=== PATIENT | female | born 1965 | race Caucasian/White ===

== ENCOUNTER → 2016-11-16 | Outpatient (CLI) | payer MEDICARE, OTHER ==
[~2016-11-16] MED LIST: /AMIT25TA PO; /OXYB10XLT PO; ADV250INH INH; ADVA250A INH; ALBU0.5N INH; AMPY10TA PO; BACL-67 PO; BACL10TA2 PO; BETA0.3I SC; EMLA2.5C EX; FIRS1SOL3 PO; FLOR250C PO; GABA800T PO; LIDO1DIS2 TD; NEUR300C PO; PERC7.5T12 PO; PRENTAB66 PO; ROPI0.25 PO; SING10TA32 PO; SING5CHW PO; TYSA1INJ IV; VITA30004 PO; VITAPRTA PO; ZANTTAB PO; ZYRT10CA PO; ZYRT10TA2 PO; [UNRECOGNIZED DRUG - OTHER] PO
--- NOTE | 2016-11-16 15:17 | REP ---
REASON FOR EXAM: Multiple sclerosis. COMPARISON EXAM: 03/29/2016 GADOLINIUM UTILIZED: 18 mL of ProHance. The craniovertebral junction is unchanged. No abnormal signal enhancement has developed in the imaged portion of the spinal cord. Vertebral body height and alignment is unchanged remaining within normal limits. There is disc space hydrational signal loss and mild disc space height loss at multiple levels, status quo. At the C2-3 level, there is no significant change. There is effacement of the thecal sac due to a small central disc protrusion without significant cord compression. At the C3-4 level, there is a broad-based annular bulge and a central disc protrusion minimally effacing the thecal sac and without spinal cord compression, status quo. There is no acute disc extrusion or foraminal narrowing. At the C4-5 level, note is again made of a broad-based annular bulge with a central disc protrusion, status quo. The discogenic change is again seen to efface the thecal sac, status quo. There is no jesse cord compression or significant change from the prior exam. The neural foramina are not stenotic. At the C5-6 level, there is a broad-based annular bulge which nearly obliterates the ventral subarachnoid space, status quo. The spinal cord is unchanged in appearance showing no jesse compression, however, there is unchanged central canal stenosis. Bilateral degenerative hypertrophic facet and uncovertebral joint changes are again noted causing essentially unchanged mild bilateral foraminal narrowing. At the C6-7 level, there is a broad-based annular bulge again seen with a posterior spondylotic bar. These factors are again seen to obliterate the ventral subarachnoid space, and there is now evidence of mild flattening and straightening of the spinal cord with mild central canal stenosis. Once again, there is bilateral foraminal narrowing at this level, status quo. There is no acute disc extrusion. At the C7-T1 level, there is no change. There is no disc herniation, foraminal narrowing, or central canal stenosis. IMPRESSION: Multilevel discogenic changes, essentially stable from the prior exam. There is no abnormal cord signal. Signed by Mirza Forbes DO 11/16/2016 03:39 P
--- NOTE | 2016-11-16 15:51 | REP ---
REASON FOR EXAM: History of multiple sclerosis followup exam. COMPARISON: 03/29/2016. Gadolinium 18 mL of ProHance. The craniovertebral junction is unchanged. There is no cerebellar tonsillar ectopia. The ventricles and sulci are unchanged. There are no extra-axial fluid collections. There is no shift of the midline structures. Once again, note is made of T2 and particularly FLAIR deep white matter signal hyperintensities with predominant pericallosal hyperintensities consistent with Vega's fingers status quo. There is no evidence of abnormal lesional enhancement. The orbital and petrous structures, cerebellopontine angles, posterior fossa are unchanged remaining within normal limits. The sella turcica, cavernous, and paracavernous structures are unchanged remaining within normal limits. The visualized portions of the paranasal sinuses and mastoid air cells are also unchanged. IMPRESSION: Findings, as described above, consistent with multiple sclerosis stable from the prior exam. Signed by Mirza Forbes DO 11/16/2016 04:27 P
== END ==
LOC: M RAD 12:48
PROVIDERS: ATTEND Psychiatry & Neurology Neurology
DX: G35 Multiple sclerosis (principal)
CPT/HCPCS: 70553; 72156; A9576

== ENCOUNTER → 2017-01-23 | Outpatient (CLI) | payer MEDICARE, OTHER ==
[~2017-01-23] MED LIST changes: -BACL-67 PO; +BACL1TAB9 PO
== END ==
LOC: M LRY 15:42
PROVIDERS: ATTEND Nurse Practitioner Family
DX: R05 Cough (principal); Z53.8 Procedure and treatment not carried out for other reasons

== ENCOUNTER → 2017-01-27 | Outpatient (CLI) | payer MEDICARE, OTHER ==
--- NOTE | 2017-01-27 11:49 | REP ---
Clinical: cough and shortness of breath. Comparison: none. Technique: PA and lateral. Findings: The mediastinum and cardiac silhouette are normal. The lung anderson are clear and without acute consolidation, effusion, or pneumothorax. The skeletal structures are intact and normal. Impression: 1. No acute cardiopulmonary process. Signed by Tunde Gracia MD 01/27/2017 11:40 A
== END ==
LOC: M LRY 11:27
PROVIDERS: ATTEND Nurse Practitioner Family
DX: R05 Cough (principal); R06.02 Shortness of breath
CPT/HCPCS: 71020; G0463

== ENCOUNTER → 2017-07-03 | Outpatient (CLI) | payer MEDICARE, OTHER | LOC: M LRY 16:57 | DX: R05 Cough (principal) | CPT/HCPCS: 71046; 94640 ==

== ENCOUNTER 2017-11-07 10:56 | Emergency (ER) | payer MEDICARE, OTHER ==
[2017-11-07] MEDS: TETRACAINE 0.5% OPHTH SOLN 4ML OD (12:00)
[2017-11-07] MEDS: LISSAMINE GREEN OPHTH 1.5 MG STRIP OD (12:00)
[2017-11-07] MEDS ORDERED: ERYTHROMYCIN OPHTH OINT OD (12:15)
== END 2017-11-07 12:30 | disposition home or self-care (01) ==
LOC: M ED 10:56
DX: S05.01XA Injury of conjunctiva and corneal abrasion without foreign body, right eye, initial encounter (principal); W22.8XXA Striking against or struck by other objects, initial encounter; Y92.099 Unspecified place in other non-institutional residence as the place of occurrence of the external cause; Y93.9 Activity, unspecified; Y99.9 Unspecified external cause status; J45.909 Unspecified asthma, uncomplicated; K21.9 Gastro-esophageal reflux disease without esophagitis; G35 Multiple sclerosis; H53.8 Other visual disturbances; F32.9 Major depressive disorder, single episode, unspecified; Z79.899 Other long term (current) drug therapy; Z88.6 Allergy status to analgesic agent; Z88.0 Allergy status to penicillin
CPT/HCPCS: 99283

== ENCOUNTER → 2017-12-12 | Outpatient (CLI) | payer MEDICARE, OTHER | LOC: M RAD 16:16 | DX: G35 Multiple sclerosis (principal) ==

== ENCOUNTER → 2017-12-31 | Outpatient (CLI) | payer MEDICARE, OTHER ==
[~2017-12-31] MED LIST changes: -/AMIT25TA PO; -/OXYB10XLT PO; -ADV250INH INH; -ADVA250A INH; -ALBU0.5N INH; -AMPY10TA PO; -BACL10TA2 PO; -BACL1TAB9 PO; -BETA0.3I SC; -EMLA2.5C EX; -FIRS1SOL3 PO; -FLOR250C PO; -GABA800T PO; -LIDO1DIS2 TD; -NEUR300C PO; -PERC7.5T12 PO; -PRENTAB66 PO; +PROHANCE 279.3MG/ML 15ML VIAL (A9576) As Ordered; +PROHANCE 279.3MG/ML 5ML VIAL (A9576) As Ordered; -ROPI0.25 PO; -SING10TA32 PO; -SING5CHW PO; -TYSA1INJ IV; -VITA30004 PO; -VITAPRTA PO; -ZANTTAB PO; -ZYRT10CA PO; -ZYRT10TA2 PO; -[UNRECOGNIZED DRUG - OTHER] PO
== END ==
LOC: M RAD 14:52
DX: G35 Multiple sclerosis (principal); M51.24 Other intervertebral disc displacement, thoracic region; M51.34 Other intervertebral disc degeneration, thoracic region; M47.892 Other spondylosis, cervical region; M50.21 Other cervical disc displacement, high cervical region; M50.221 Other cervical disc displacement at C4-C5 level; M50.222 Other cervical disc displacement at C5-C6 level; M50.223 Other cervical disc displacement at C6-C7 level
CPT/HCPCS: A9576

== ENCOUNTER 2019-02-06 16:21 | Emergency (ER) | payer MEDICARE, OTHER ==
[~2019-02-06] VITALS: Ht 170.2 cm; Wt 94.5 kg
[~2019-02-06 16:21] MED LIST changes: +ACIP1TAB PO; +ADV250INH INH; +ADVA250A INH; +ALBU0.5N INH; +AMIT1TAB11 PO; +AMPY10TA PO; +BACL10TA2 PO; +BACL1TAB9 PO; +BETA0.3I SC; +DITR1TAB PO; +EMLA2.5C EX; +ERYTOIN8 OD; +FIRS50SO PO; +FLOR250C PO; +GABA800T4 PO; +LIDO1DIS2 TD; +NEUR300C PO; +PERC7.5T12 PO; +PRENTAB66 PO; -PROHANCE 279.3MG/ML 15ML VIAL (A9576) As Ordered; -PROHANCE 279.3MG/ML 5ML VIAL (A9576) As Ordered; +PROZ20CA11 PO; +ROPI0.25 PO; +SING10TA32 PO; +SING5CHW PO; +TYSA1INJ IV; +VITA30004 PO; +VITAPRTA PO; +ZANT150T40 PO; +ZANTTAB PO; +ZYRT10CA PO; +ZYRT10CA5 PO; +[UNRECOGNIZED DRUG - OTHER] PO
[2019-02-06] MEDS ORDERED: ONDANSETRON 4MG/2ML VIAL (J2405) IV ONE (18:45)
[2019-02-06] MEDS ORDERED: NS 1,000 ML IV ONE (18:45)
[2019-02-06] MEDS ORDERED: ACETAMINOPHEN 325 MG TAB PO ONE (18:45)
--- NOTE | 2019-02-06 19:07 | REP ---
Chest x-ray: Two views. History: Fever and cough. Comparison chest x-ray: July 03, 2017. Findings: There is increased density in the right lower lobe overlying the spine on the lateral radiograph. This is seen overlying the right heart on the frontal view and is felt to be consistent with right lower lobe pneumonia. Remaining lung anderson are clear. Pleural angles are sharp. Heart is not enlarged. Pulmonary vasculature is not increased. Impression: Area of increased density in the right lower lobe posteriorly consistent with pneumonia. Otherwise no acute disease. Electronically Signed by Deacon Elliott MD 02/06/2019 06:59 P
[2019-02-06 19:30] LABS: BASO % 0.2 % (0.0-1.0); EOS # 0.1 10^3/uL (0.0-0.5); HEMATOCRIT 36.3 % (36.0-47.0); HEMOGLOBIN 12.4 g/dl (12.0-15.5); LYMPH # 0.5 10^3/uL (1.5-5.0); LYMPH % 5.4 % (24.0-44.0); MEAN CORPUSCULAR HEMOGLOBIN 29.9 pg (27.0-33.0); MEAN CORPUSCULAR HGB CONC 34.2 g/dl (32.0-36.5); MEAN CORPUSCULAR VOLUME 87.5 fl (80.0-96.0); MONO # 0.8 10^3/uL (0.0-0.8); MONO % 8.4 % (0.0-5.0); NEUTROPHILS # 7.9 10^3/uL (1.5-8.5); NEUTROPHILS % 84.5 % (36.0-66.0); PLATELET COUNT, AUTOMATED 199 10^3/uL (150-450); RED BLOOD COUNT 4.15 10^6/uL (4.00-5.40); WHITE BLOOD COUNT 9.3 10^3/uL (4.0-10.0)
[2019-02-06] MEDS ORDERED: AZITHROMYCIN INJ 500 MG, VIAL MATE ADAPTER 1 EACH in D5W 250 ML IV ONE (19:45)
[2019-02-06 19:51] LABS: ALBUMIN 3.1 GM/DL (3.2-5.2); ALT/SGPT 26 U/L (12-78); BILIRUBIN,DIRECT 0.4 MG/DL (0.0-0.2); BLOOD UREA NITROGEN 8 MG/DL (7-18); CALCIUM LEVEL 8.3 MG/DL (8.5-10.1); CARBON DIOXIDE LEVEL 29 MEQ/L (21-32); CHLORIDE LEVEL 99 MEQ/L (98-107); CREATININE FOR GFR 0.66 MG/DL (0.55-1.30); GLOMERULAR FILTRATION RATE > 60.0 (>51); GLUCOSE, FASTING 107 MG/DL (70-100); POTASSIUM SERUM 3.1 MEQ/L (3.5-5.1); SODIUM LEVEL 137 MEQ/L (136-145); TOTAL PROTEIN 6.7 GM/DL (6.4-8.2)
[2019-02-06 20:01] LABS: INFLUENZA A AMPLIFICATION NEGATIVE (NEGATIVE); INFLUENZA B AMPLIFICATION NEGATIVE (NEGATIVE)
[2019-02-06 21:34] LABS: APPEARANCE, URINE HAZY (CLEAR); BACTERIA, URINE AUTO 1+ (NEGATIVE); BILIRUBIN, URINE AUTO NEGATIVE (NEGATIVE); BLOOD, URINE BLOOD NEGATIVE (NEGATIVE); COLOR, URINE AMBER (YELLOW); GLUCOSE, URINE (UA) AUTO NEGATIVE (NEGATIVE); KETONE, URINE AUTO 1+ mg/dL (NEGATIVE); LEUKOCYTE ESTERASE, URINE AUTO TRACE (NEGATIVE); MUCUS, URINE MODERATE (NEGATIVE); NITRITE, URINE AUTO NEGATIVE (NEGATIVE); PROTEIN, URINE AUTO 2+ mg/dL (NEGATIVE); RBC, URINE AUTO 4 /HPF (0-3); SPECIFIC GRAVITY URINE AUTO 1.032 (1.002-1.035); SQUAMOUS EPITHELIAL CELL UR AU 2 /HPF (0-6); WBC, URINE AUTO 10 /HPF (0-3)
[2019-02-06] MEDS ORDERED: cefTRIAXone SOD 1 GM in D5W MINI-BAG PLUS 50 ML IV ONE (21:45)
[2019-02-06] MEDS ORDERED: IBUP-1022 PO (21:53)
[2019-02-06] MEDS ORDERED: CEFU50TA PO (21:53)
[2019-02-06 22:07] VITALS: BP 118/56
== END 2019-02-06 22:16 | disposition home or self-care (01) ==
LOC: M ED 16:21
DX: J84.9 Interstitial pulmonary disease, unspecified (principal); R91.8 Other nonspecific abnormal finding of lung field; J45.909 Unspecified asthma, uncomplicated; G35 Multiple sclerosis; Z88.0 Allergy status to penicillin; Z88.8 Allergy status to other drugs, medicaments and biological substances; Z79.899 Other long term (current) drug therapy
CPT/HCPCS: 71046; 80048; 80076; 81001; 83605; 85025; 87040; 87086; 87502; 96365; 96366; 96368; 96375; 99284; G0463; J0456; J0696; J2405

== ENCOUNTER → 2019-02-14 | Outpatient (CLI) | payer MEDICARE, OTHER ==
[~2019-02-14] MED LIST changes: +CEFU50TA PO; +IBUP-1022 PO
--- NOTE | 2019-02-14 19:27 | REP ---
CHEST, TWO VIEWS: Two views of the chest were performed and compared to prior study of 02/06/2019. There is improvement of the posterior inferior right lower lobe infiltrate. Mild residual is noted. Other lung anderson remain clear. Heart is normal in size. Mediastinal silhouette is unremarkable and unchanged. IMPRESSION: Right lower lobe infiltrate with mild residual. Recommend followup until resolution. Electronically Signed by Shiv Childers MD 02/14/2019 09:29 P
== END ==
LOC: M LRY 16:54
PROVIDERS: ATTEND Nurse Practitioner Family
DX: R91.8 Other nonspecific abnormal finding of lung field (principal); R09.89 Other specified symptoms and signs involving the circulatory and respiratory systems
CPT/HCPCS: 71046; 87804; 87880; G0463

== ENCOUNTER → 2019-02-14 | Outpatient (REF) | payer MEDICARE, OTHER | LOC: M SFHCLERA 16:34 | PROVIDERS: ATTEND Nurse Practitioner Family | DX: R50.9 Fever, unspecified (principal) ==

== ENCOUNTER → 2019-06-03 | Outpatient (REF) | payer MEDICARE, OTHER | LOC: M SFHCLERA 16:31 | PROVIDERS: ATTEND Family Medicine | DX: R30.0 Dysuria (principal) | CPT/HCPCS: 81002; 87086; G0463 ==

== ENCOUNTER 2020-03-11 14:01 | Inpatient (IN) | payer MEDICARE, OTHER ==
[~2020-03-11] VITALS: Ht 170.2 cm; Wt 85.0 kg
[2020-03-11] MEDS ORDERED: PROAAER10 INH (15:09)
[2020-03-11] MEDS ORDERED: RABE1TAB PO (15:09)
[2020-03-11] MEDS ORDERED: COMBIVENT RESPIMAT 100-20MCG INHALER 4GM INH ONE (15:15)
[2020-03-11] MEDS ORDERED: ONDANSETRON 4MG/2ML VIAL IV ONE (15:15)
[2020-03-11] MEDS ORDERED: MORPHINE 4 MG/ML 1ML VIAL/SYRINGE (J2270) IV ONE (15:15)
[2020-03-11 15:22] LABS: BASO % 0.1 % (0.0-1.0); HEMATOCRIT 38.4 % (36.0-47.0); HEMOGLOBIN 12.6 g/dl (12.0-15.5); LYMPH # 0.5 10^3/uL (1.5-5.0); LYMPH % 3.7 % (24.0-44.0); MEAN CORPUSCULAR HEMOGLOBIN 28.5 pg (27.0-33.0); MEAN CORPUSCULAR HGB CONC 32.8 g/dl (32.0-36.5); MEAN CORPUSCULAR VOLUME 86.9 fl (80.0-96.0); MONO % 7.3 % (0.0-5.0); NEUTROPHILS # 12.4 10^3/uL (1.5-8.5); NEUTROPHILS % 87.8 % (36.0-66.0); PLATELET COUNT, AUTOMATED 233 10^3/uL (150-450); RED BLOOD COUNT 4.42 10^6/uL (4.00-5.40); WHITE BLOOD COUNT 14.1 10^3/uL (4.0-10.0)
[2020-03-11 15:48] LABS: ALBUMIN 2.7 GM/DL (3.2-5.2); ALT/SGPT 33 U/L (12-78); BILIRUBIN,DIRECT 0.5 MG/DL (0.0-0.2); BILIRUBIN,TOTAL 1.1 MG/DL (0.2-1.0); BLOOD UREA NITROGEN 7 MG/DL (7-18); CALCIUM LEVEL 8.3 MG/DL (8.5-10.1); CARBON DIOXIDE LEVEL 27 MEQ/L (21-32); CHLORIDE LEVEL 101 MEQ/L (98-107); CK-MB VALUE MASS 1.5 NG/ML (<3.6); CPK CREATINE PHOSPHOKINASE 116 U/L (26-192); CREATININE FOR GFR 0.51 MG/DL (0.55-1.30); GLOMERULAR FILTRATION RATE > 60.0 (>51); GLUCOSE, FASTING 94 MG/DL (70-100); LIPASE 86 U/L (73-393); MB/CK RELATIVE INDEX 1.29 (< OR =4); POTASSIUM SERUM 3.1 MEQ/L (3.5-5.1); SODIUM LEVEL 138 MEQ/L (136-145); TOTAL PROTEIN 6.2 GM/DL (6.4-8.2); TROPONIN I < 0.02 NG/ML (< 0.10)
[2020-03-11] MEDS ORDERED: POTASSIUM CHLORIDE 10 MEQ SR TABLET PO ONE (16:00)
[2020-03-11] MEDS ORDERED: ISOVUE-370 76% 100ML VIAL As Ordered ONE (16:41)
--- NOTE | 2020-03-11 17:11 | REPVR ---
PROCEDURE INFORMATION: Exam: XR Chest, 2 Views Exam date and time: 03/11/2020 3:05 PM Age: 55 years old Clinical indication: Shortness of breath; Additional info: SOB cough TECHNIQUE: Imaging protocol: XR of the chest Views: 2 views. COMPARISON: CR CHEST 2 VIEW 12/18/2019 FINDINGS: Lungs: Dense ill-defined airspace consolidation in the medial aspect of the right lower lobe is consistent with pneumonia. It is approximately 7 x 10 cm on PA view. The left lung is clear. Pleural space: No significant pleural effusion. No pneumothorax. Heart/Mediastinum: The cardiac silhouette is normal in size. The mediastinal contour is normal. Bones/joints: No acute osseous abnormalities are identified. Soft tissues: Unremarkable. IMPRESSION: 1. Dense ill-defined airspace consolidation in the medial aspect of the right lower lobe is consistent with pneumonia. It is new since the last chest x-ray 3 months ago. Imaging follow-up to resolution is recommended. 2. The left lung is clear. Electronically signed by: Jagdish Starks On 03/11/2020 17:11:04 PM
--- NOTE | 2020-03-11 17:28 | REPVR ---
PROCEDURE INFORMATION: Exam: CT Abdomen And Pelvis With Contrast Exam date and time: 03/11/2020 4:55 PM Age: 55 years old Clinical indication: Abdominal pain; Localized; Right upper quadrant (ruq); Additional info: Ruq pain, vomiting, diarrhea TECHNIQUE: Imaging protocol: Computed tomography of the abdomen and pelvis with intravenous contrast. Radiation optimization: All CT scans at this facility use at least one of these dose optimization techniques: automated exposure control; mA and/or kV adjustment per patient size (includes targeted exams where dose is matched to clinical indication); or iterative reconstruction. Contrast material: ISOVUE 370; Contrast volume: 100 ml; Contrast route: INTRAVENOUS (IV); COMPARISON: No relevant prior studies available. FINDINGS: Lungs: Dense consolidation with air bronchograms in the medial basal and posterior basal segments of the right lower lobe is consistent with pneumonia. Pleural space: No pleural effusion. The left lung base is clear. Heart: Heart size is normal. Liver: Normal. No mass. Gallbladder and bile ducts: Cholecystectomy. Mild dilatation of the common bile duct, 9 mm, is probably physiologic following cholecystectomy (reservoir effect). Pancreas: Normal. No ductal dilation. Spleen: Normal. No splenomegaly. Adrenals: Normal. No mass. Kidneys and ureters: At the lateral right mid kidney, a mass is 1.9 x 1.1 x 1.5 cm. It is hyperattenuating and homogeneous. Its density is 44 HU, which is not compatible with a simple cyst. It may be a complicated cystic lesion or solid mass. The kidneys and ureters are otherwise unremarkable. Stomach and bowel: The stomach and duodenum are unremarkable. The small bowel is normal in caliber without wall thickening. The colon is unremarkable. There is no acute colonic distention, diverticulosis or inflammation. Appendix: The appendix is normal in caliber without surrounding inflammation. Intraperitoneal space: Unremarkable. No free air. No significant fluid collection. Vasculature: Unremarkable. No abdominal aortic aneurysm. Lymph nodes: Unremarkable. No enlarged lymph nodes. Urinary bladder: Urinary bladder is normal without wall thickening, mass or stone. Reproductive: Bilateral tubal ligation clips are noted. Postmenopausal uterine and ovarian atrophy is appropriate for 55 years of age. Bones/joints: Lumbar hyperlordosis. Soft tissues: See "Kidneys and ureters" finding. IMPRESSION: 1. Dense consolidation with air bronchograms in the medial basal and posterior basal segments of the right lower lobe is consistent with pneumonia. 2. At the lateral right mid kidney, a mass is 1.9 x 1.1 x 1.5 cm. It is hyperattenuating and homogeneous. Its density is 44 HU, which is not compatible with a simple cyst. It may be a complicated cystic lesion or solid mass. Ultrasound is recommended as the initial imaging study. If the ultrasound is not definitive, MRI without and with contrast may be necessary. 3. Cholecystectomy. 4. Bilateral tubal ligations. Electronically signed by: Jagdish Starks On 03/11/2020 17:28:27 PM
--- NOTE | 2020-03-11 17:43 | HPEPDOC ---
[facility] Medical History & Physical Date of Admission Mar 11, 2020 Date of Service: Mar 11, 2020 History and Physical CHIEF COMPLAINT: shortness of breath HISTORY OF PRESENT ILLNESS: 55 year old female with PMHx as indicated presents to ED for several day history of shortness of breath, malaise, fatigue and abdominal pain. Denies sick contacts or recent travel. Also noted nausea, and one episode of non-bilious, non-bloody vomiting. Denies chest pain, headaches. PAST MEDICAL HISTORY: #multiple sclerosis #asthma #dysthymia #leg spasms #allergies ALLERGIES: Please see below. REVIEW OF SYSTEMS: Negative except as per HPI. HOME MEDICATIONS: Please see below. PHYSICAL EXAMINATION: VITAL SIGNS: See below General: NAD, lying comfortably in bed HEENT: NC/AT, EOMI, PERRL, poor dentition Lungs: diminished breath sound right lower base Heart: +S1S2, RRR Abd: soft, NT, +BS Ext; No edema LABORATORY DATA: See below. MICROBIOLOGY: Please see below. A/P: 55 yo female presents for several day history of shortness of breath, abdominal pain, fatigue, malaise found to have right lower lobe pneumonia, with right renal mass. #PNA - continue levaquin started in ED - sputum cultures/blood cultures pending - incentive spirometry #renal mass - US for further evaluation #MS #dysthymia #GERD #DVT prophylaxis - mechanical for now - possible biopsy or procedural intervention with regards to renal mass Vital Signs Vital Signs Date Time Temp Pulse Resp B/P (MAP) Pulse Ox O2 Delivery O2 Flow Rate FiO2 03/11/20 15:17 16 03/11/20 14:19 99.1 93 122/62 (82) 93 Room Air Laboratory Data Labs 24H Laboratory Tests 2 03/11/20 14:59: Immature Granulocyte % (Auto) 1.1, Neutrophils (%) (Auto) 87.8H, Lymphocytes (%) (Auto) 3.7L, Monocytes (%) (Auto) 7.3H, Eosinophils (%) (Auto) 0.0, Basophils (%) (Auto) 0.1, Neutrophils # (Auto) 12.4H, Lymphocytes # (Auto) 0.5L, Monocytes # (Auto) 1.0H, Eosinophils # (Auto) 0.0, Basophils # (Auto) 0.0, Nucleated Red Blood Cells % (auto) 0.0, Anion Gap 10, Glomerular Filtration Rate > 60.0, Calcium Level 8.3L, Total Bilirubin 1.1H, Direct Bilirubin 0.5H, Aspartate Amino Transf (AST/SGOT) 25, Alanine Aminotransferase (ALT/SGPT) 33, Alkaline Phosphatase 98, Total Creatine Kinase 116, Creatine Kinase MB 1.5, Creatine Kinase MB Relative Index 1.29, Troponin I < 0.02, Total Protein 6.2L, Albumin 2.7L, Albumin/Globulin Ratio 0.8L, Lipase 86 CBC/BMP Laboratory Tests 03/11/20 14:59 Microbiology Microbiology 03/11/20 Respiratory Virus Panel (PCR) ([facility]) - Final, Complete Home Medications Scheduled Baclofen (Baclofen) 10 Mg Tablet, 30 MG PO BID TAKES AM/HS Baclofen (Baclofen) 10 Mg Tablet, 20 MG PO DAILY TAKES MIDDAY Bifidobacterium Infantis (Align) 4 Mg Capsule, 4 MG PO DAILY Cetirizine HCl (Cetirizine HCl) 10 Mg Tablet, 10 MG PO DAILY Fluoxetine Hcl (Fluoxetine HCl) 40 Mg Capsule, 40 MG PO DAILY Levofloxacin (Levaquin) 750 Mg Tablet, 1 TAB PO DAILY Montelukast Sodium (Singulair) 10 Mg Tab, 10 MG PO QHS Vits96/Iron Fum/Folic ( Tablet) 1 Each Tablet, 1 TAB PO QHS Rabeprazole Sodium (Rabeprazole Sodium) 20 Mg Tablet.dr, 20 MG PO QHS Salmeterol/Fluticasone (Advair 250-50 Diskus) 14 Puff/Inhaler Aerp, 1 PUFF INH BID Teriflunomide (Aubagio) 14 Mg Tablet, 14 MG PO QHS Scheduled PRN Albuterol Sulfate (Proair Hfa) 8.5 Gm Hfa.aer.ad, 2 PUFFS INH Q4H PRN for SHORTNESS OF BREATH Allergies Coded Allergies: Penicillins (Verified Allergy, Mild, RASH, 03/11/20) naproxen (Verified Allergy, Mild, ITCHING, 03/11/20) ocrelizumab (Verified Allergy, Mild, rash, 03/11/20) A-FIB/CHADSVASC A-FIB History Current/History of A-Fib/PAF?: No IVY REILLY MD Mar 11, 2020 17:43
[2020-03-11] MEDS ORDERED: LevoFLOXacin IV 750 MG in IV 1 EA IV ONE (17:45)
[2020-03-11] MEDS ORDERED: BACL1TAB8 PO (18:09)
[2020-03-11 18:10] LABS: MAGNESIUM LEVEL 1.8 MG/DL (1.8-2.4)
[2020-03-11] MEDS ORDERED: CETI-24 PO (18:10)
[2020-03-11] MEDS ORDERED: BACL10TA8 PO (18:10)
[2020-03-11] MEDS ORDERED: AUBA14TA PO (18:10)
[2020-03-11] MEDS ORDERED: FLUO40CA PO (18:10)
[2020-03-11] MEDS ORDERED: ALIG4CAP PO (18:10)
[2020-03-11] MEDS ORDERED: PREN1TAB14 PO (18:10)
[2020-03-11] MEDS ORDERED: ACETAMINOPHEN TAB 650MG DOSE (2X325MG) As Ordered ONE (18:27)
[2020-03-11] MEDS ORDERED: ACETAMINOPHEN TAB 650MG DOSE (2X325MG) PO ONE (18:30)
--- NOTE | 2020-03-11 19:14 | REPVR ---
PROCEDURE INFORMATION: Exam: US Retroperitoneal Limited, Kidneys Exam date and time: 03/11/2020 6:47 PM Age: 55 years old Clinical indication: Abnormal findings; Mass, lump, or swelling; Kidney, right; Additional info: Further eval renal mass TECHNIQUE: Imaging protocol: Real-time ultrasound of the retroperitoneum with image documentation. Examination was focused on the kidneys. COMPARISON: CT ABD/PEL W/IV CONTRAST ONLY 03/11/2020 4:52 PM FINDINGS: Right kidney: The right kidney is normal in size. It is 10.6 x 5.6 x 4.0 cm. There is no stone, solid right renal mass, cortical loss or hydronephrosis. A cyst at the lateral aspect of the right mid kidney is 1.7 x 1.6 x 1.1 cm. It corresponds to the abnormality described in the CT report. It is anechoic and avascular on color Doppler. There is prominent renal sinus fat. Left kidney: The left kidney is normal in size. It is 11.9 x 5.3 x 6.3 cm. There is no stone, solid left renal mass, cortical loss or hydronephrosis. There is prominent renal sinus fat. Bladder: Urinary bladder is normal without wall thickening, mass or stone. IMPRESSION: 1. The indeterminate mass at the lateral aspect of the right kidney, which was identified on the CT today, is confirmed to be a complicated cyst. No imaging follow-up is necessary. The right kidney is otherwise unremarkable. 2. The left kidney and bladder are normal. Electronically signed by: Jagdish Starks On 03/11/2020 19:14:06 PM
--- NOTE | 2020-03-11 19:43 | ECGEPIP ---
[facility] - ED Test Date: 2020-03-11 Pat Name: SOULEYMANE COLEMAN Department: Room: [place] [address] Gender: Female [employer] Install[employer]: bo : 1965 Requested By: IAN Bowden Order Number: [id number] Reading MD: Mkie Rutherford Measurements Intervals [place] Rate: 91 P: 67 DE: 153 QRS: 51 QRSD: 85 T: 57 QT: 307 QTc: 379 Interpretive Statements SINUS RHYTHM NONSPECIFIC ST & T-WAVE ABNORMALITY BASELINE ARTIFACT AFFECTS INTERPRETATION NO PRIORS FOR COMPARISON Electronically Signed on 03-11-2020 19:43:49 EDT by Mike Rutherford
[2020-03-11] MEDS: ADVAIR HFA 115/21MCG INHALER INH SCH (20:52)
[2020-03-11] MEDS ORDERED: ENTER DRUG NAME HERE (PATIENT'S OWN MED) PO SCH (21:00)
[2020-03-11] MEDS: PRENATAL VITAMINS CHEWABLE TABLET PO SCH (21:00)
[2020-03-11] MEDS: LACTOBACILLUS ACIDOPHILUS CAP (BACID) PO SCH (21:27)
[2020-03-11] MEDS: MONTELUKAST 10 MG TAB PO SCH (21:27)
[2020-03-11] MEDS: ACETAMINOPHEN TAB 650MG DOSE (2X325MG) PO PRN (21:28)
[2020-03-11] MEDS: BACLOFEN 10 MG TAB PO SCH (21:28)
[2020-03-11 22:00] VITALS: BP 119/68
[2020-03-12] MEDS ORDERED: KETOROLAC 30 MG/ML 1ML VIAL IV ONE
[2020-03-12] MEDS ORDERED: CYCLOBENZAPRINE 10MG TABLET PO ONE ×2 (00:30→20:15)
[2020-03-12] MEDS: PERCOCET 5MG/325MG TAB PO PRN ×3 (00:47→21:28)
[2020-03-12 06:00] VITALS: BP 114/76
[2020-03-12 06:01] LABS: HEMATOCRIT 36.2 % (36.0-47.0); HEMOGLOBIN 11.6 g/dl (12.0-15.5); MEAN CORPUSCULAR HEMOGLOBIN 28.1 pg (27.0-33.0); MEAN CORPUSCULAR VOLUME 87.7 fl (80.0-96.0); PLATELET COUNT, AUTOMATED 252 10^3/uL (150-450); RED BLOOD COUNT 4.13 10^6/uL (4.00-5.40); WHITE BLOOD COUNT 13.2 10^3/uL (4.0-10.0)
[2020-03-12 06:14] LABS: INR 1.19; PROTHROMBIN TIME 15.3 SECONDS (12.5-14.3)
[2020-03-12 06:15] LABS: BLOOD UREA NITROGEN 5 MG/DL (7-18); CALCIUM LEVEL 8.1 MG/DL (8.5-10.1); CARBON DIOXIDE LEVEL 28 MEQ/L (21-32); CHLORIDE LEVEL 100 MEQ/L (98-107); GLOMERULAR FILTRATION RATE > 60.0 (>51); GLUCOSE, FASTING 87 MG/DL (70-100); POTASSIUM SERUM 3.1 MEQ/L (3.5-5.1); SODIUM LEVEL 138 MEQ/L (136-145)
[2020-03-12 06:33] LABS: MAGNESIUM LEVEL 1.9 MG/DL (1.8-2.4)
[2020-03-12] MEDS ORDERED: POTASSIUM CHLORIDE 10 MEQ SR TABLET PO ONE (07:45)
[2020-03-12] MEDS: ADVAIR HFA 115/21MCG INHALER INH SCH ×2 (07:48→20:03)
[2020-03-12] MEDS: LACTOBACILLUS ACIDOPHILUS CAP (BACID) PO SCH ×4 (08:48→21:29)
[2020-03-12] MEDS: CETIRIZINE (ZyrTEC) 10 MG TAB PO SCH (08:48)
[2020-03-12] MEDS: PANTOPRAZOLE 40MG TAB (PROTONIX) PO SCH (08:48)
[2020-03-12] MEDS: BACLOFEN 10 MG TAB PO SCH ×3 (08:49→21:29)
[2020-03-12] MEDS: FLUoxetine 20 MG CAP PO SCH (08:49)
[2020-03-12] MEDS ORDERED: FLUBLOK(EGG FREE)(QUAD)INFLUENZA VACC 0.5ML SYRINGE 18YRS & OLDER IM SCH (09:00)
[2020-03-12] MEDS ORDERED: LEVA750T7 PO (10:22)
[2020-03-12 14:00] VITALS: BP 102/60
--- NOTE | 2020-03-12 14:14 | DS.PDOC ---
Discharge Summary General Date of Admission Mar 11, 2020 at 17:46 Date of Discharge 03/12/20 Discharge Summary PROCEDURES PERFORMED DURING STAY: [None]. ADMITTING DIAGNOSES: #pneumonia #right renal mass SECONDARY DIAGNOSES: #multiple sclerosis #asthma #dysthymia #leg spasms #allergies COMPLICATIONS/CHIEF COMPLAINT: Pneumonia, Renal Mass. HPI/HOSPITAL COURSE: 55 year old female with PMHx as indicated presents to ED for several day history of shortness of breath, malaise, fatigue and abdominal pain. Denies sick contacts or recent travel. Also noted nausea, and one episode of non-bilious, non-bloody vomiting. Denies chest pain, headaches. No further episodes of vomiting or nausea. Shortness of breath resolved. Renal mass further evaluated with ultrasound with no suspicious findings. DISCHARGE MEDICATIONS: Please see below. ALLERGIES: Please see below. PHYSICAL EXAMINATION ON DISCHARGE: VITAL SIGNS: Please see below. General: NAD, lying comfortably in bed HEENT: NC/AT, EOMI, PERRL, poor dentition Lungs: diminished breath sound right lower base Heart: +S1S2, RRR Abd: soft, NT, +BS Ext; No edema LABORATORY DATA: Please see below. ACTIVITY: [As tolerated]. DISPOSITION: Discharge home. DISCHARGE INSTRUCTIONS: 1. Follow up PCP in 3-5 days DISCHARGE CONDITION: [Stable]. TIME SPENT ON DISCHARGE: 35 minutes. Vital Signs/I&Os Vital Signs Date Time Temp Pulse Resp B/P (MAP) Pulse Ox O2 Delivery O2 Flow Rate FiO2 03/12/20 06:00 99.9 92 18 114/76 (89) 95 Room Air I&O- Last 24 Hours up to 6 AM 03/12/20 06:00 Intake Total 150 ml Balance 150 ml Laboratory Data Labs 24H Laboratory Tests 2 03/11/20 14:59: Immature Granulocyte % (Auto) 1.1, Neutrophils (%) (Auto) 87.8H, Lymphocytes (%) (Auto) 3.7L, Monocytes (%) (Auto) 7.3H, Eosinophils (%) (Auto) 0.0, Basophils (%) (Auto) 0.1, Neutrophils # (Auto) 12.4H, Lymphocytes # (Auto) 0.5L, Monocytes # (Auto) 1.0H, Eosinophils # (Auto) 0.0, Basophils # (Auto) 0.0, Nucleated Red Blood Cells % (auto) 0.0, Anion Gap 10, Glomerular Filtration Rate > 60.0, Calcium Level 8.3L, Magnesium Level 1.8, Total Bilirubin 1.1H, Direct Bilirubin 0.5H, Aspartate Amino Transf (AST/SGOT) 25, Alanine Aminotransferase (ALT/SGPT) 33, Alkaline Phosphatase 98, Total Creatine Kinase 116, Creatine Kinase MB 1.5, Creatine Kinase MB Relative Index 1.29, Troponin I < 0.02, Total Protein 6.2L, Albumin 2.7L, Albumin/Globulin Ratio 0.8L, Lipase 86 03/12/20 05:34: Nucleated Red Blood Cells % (auto) 0.0, Anion Gap 10, Glomerular Filtration Rate > 60.0, Calcium Level 8.1L, Magnesium Level 1.9, Prothrombin Time 15.3H, Prothromb Time International Ratio 1.19 03/12/20 06:44: Methicillin-Resist S.aureus DNA PCR NOT DETECTED CBC/BMP Laboratory Tests 03/11/20 14:59 03/12/20 05:34 Microbiology Microbiology 03/11/20 Blood Culture, Received Pending 03/11/20 Blood Culture, Received Pending 03/11/20 Respiratory Virus Panel (PCR) ([facility]) - Final, Complete Discharge Medications Scheduled Baclofen (Baclofen) 10 Mg Tablet, 30 MG PO BID, (Reported) TAKES AM/HS Baclofen (Baclofen) 10 Mg Tablet, 20 MG PO DAILY, (Reported) TAKES MIDDAY Bifidobacterium Infantis (Align) 4 Mg Capsule, 4 MG PO DAILY, (Reported) Cetirizine HCl (Cetirizine HCl) 10 Mg Tablet, 10 MG PO DAILY, (Reported) Fluoxetine Hcl (Fluoxetine HCl) 40 Mg Capsule, 40 MG PO DAILY, (Reported) Levofloxacin (Levaquin) 750 Mg Tablet, 1 TAB PO DAILY Montelukast Sodium (Singulair) 10 Mg Tab, 10 MG PO QHS, (Reported) Vits96/Iron Fum/Folic ( Tablet) 1 Each Tablet, 1 TAB PO QHS, (Reported) Rabeprazole Sodium (Rabeprazole Sodium) 20 Mg Tablet.dr, 20 MG PO QHS, (Reported) Salmeterol/Fluticasone (Advair 250-50 Diskus) 14 Puff/Inhaler Aerp, 1 PUFF INH BID, (Reported) Teriflunomide (Aubagio) 14 Mg Tablet, 14 MG PO QHS, (Reported) Scheduled PRN Albuterol Sulfate (Proair Hfa) 8.5 Gm Hfa.aer.ad, 2 PUFFS INH Q4H PRN for SHORTNESS OF BREATH, (Reported) Allergies Coded Allergies: Penicillins (Verified Allergy, Mild, RASH, 03/11/20) naproxen (Verified Allergy, Mild, ITCHING, 03/11/20) ocrelizumab (Verified Allergy, Mild, rash, 03/11/20) IVY REILLY MD Mar 12, 2020 14:14
[2020-03-12] MEDS ORDERED: LevoFLOXacin IV 750 MG in IV 1 EA IV SCH (18:00)
[2020-03-12] MEDS: ALBUTEROL 90 MCG/ACT 8GM HFA INHALER INH PRN (18:30)
[2020-03-12] MEDS: PRENATAL VITAMINS CHEWABLE TABLET PO SCH (21:28)
[2020-03-12] MEDS: MONTELUKAST 10 MG TAB PO SCH (21:29)
[2020-03-12 22:00] VITALS: BP 110/64
[2020-03-13 06:00] VITALS: BP 112/70
[2020-03-13 07:32] LABS: HEMATOCRIT 36.5 % (36.0-47.0); HEMOGLOBIN 12.1 g/dl (12.0-15.5); MEAN CORPUSCULAR HEMOGLOBIN 28.9 pg (27.0-33.0); MEAN CORPUSCULAR HGB CONC 33.2 g/dl (32.0-36.5); MEAN CORPUSCULAR VOLUME 87.1 fl (80.0-96.0); PLATELET COUNT, AUTOMATED 277 10^3/uL (150-450); RED BLOOD COUNT 4.19 10^6/uL (4.00-5.40); WHITE BLOOD COUNT 10.2 10^3/uL (4.0-10.0)
[2020-03-13] MEDS: ADVAIR HFA 115/21MCG INHALER INH SCH ×2 (07:38→19:45)
[2020-03-13 07:50] LABS: BLOOD UREA NITROGEN 6 MG/DL (7-18); CALCIUM LEVEL 8.3 MG/DL (8.5-10.1); CARBON DIOXIDE LEVEL 30 MEQ/L (21-32); CHLORIDE LEVEL 101 MEQ/L (98-107); CREATININE FOR GFR 0.42 MG/DL (0.55-1.30); GLOMERULAR FILTRATION RATE > 60.0 (>51); GLUCOSE, FASTING 91 MG/DL (70-100); POTASSIUM SERUM 3.4 MEQ/L (3.5-5.1); SODIUM LEVEL 138 MEQ/L (136-145)
[2020-03-13] MEDS: BACLOFEN 10 MG TAB PO SCH ×3 (09:34→22:17)
[2020-03-13] MEDS: CETIRIZINE (ZyrTEC) 10 MG TAB PO SCH (09:35)
[2020-03-13] MEDS: PANTOPRAZOLE 40MG TAB (PROTONIX) PO SCH (09:35)
[2020-03-13] MEDS: FLUoxetine 20 MG CAP PO SCH (09:35)
[2020-03-13] MEDS: LACTOBACILLUS ACIDOPHILUS CAP (BACID) PO SCH ×4 (09:35→22:16)
[2020-03-13] MEDS: ACETAMINOPHEN TAB 650MG DOSE (2X325MG) PO PRN (10:09)
[2020-03-13] MEDS: PERCOCET 5MG/325MG TAB PO PRN ×2 (10:10→22:19)
--- NOTE | 2020-03-13 10:33 | IPNPDOC ---
Text Note Date of Service The patient was seen on 03/13/20. NOTE Subjective: No acute overnight events reported. No new medical complaints. Objective: VITAL SIGNS: Please see below. General: NAD, lying comfortably in bed HEENT: NC/AT, EOMI, PERRL, poor dentition Lungs: diminished breath sound right lower base Heart: +S1S2, RRR Abd: soft, NT, +BS Ext; No edema A/P: 55 yo female with PMHx as indicated presented to ED for several day history of shortness of breath, malaise, fatigue and abdominal pain. Also noted nausea, and one episode of non-bilious, non-bloody vomiting. Admitted for pneumonia and renal mass. #PNA - continue Levaquin - saturating well on room air, asymptomatic, no fevers, leukocytosis much improved #gait dysfunction - requiring further PT #multiple sclerosis #asthma #dysthymia #leg spasms #allergies #DVT prophylaxis VS,Fishbone, I+O VS, Fishbone, I+O Laboratory Tests 03/13/20 06:55 Vital Signs Date Time Temp Pulse Resp B/P (MAP) Pulse Ox O2 Delivery O2 Flow Rate FiO2 03/13/20 10:10 16 03/13/20 06:00 97.3 95 112/70 (84) 92 Room Air I&O- Last 24 Hours up to 6 AM 03/13/20 06:00 Intake Total 1560 ml Output Total 150 ml Balance 1410 ml IVY REILLY MD Mar 13, 2020 10:33
[2020-03-13] MEDS ORDERED: NYSTATIN CREAM 15 GM TOP PRN (10:45)
[2020-03-13 14:00] VITALS: BP 111/65
[2020-03-13] MEDS: DOCUSATE SODIUM 100 MG CAP PO PRN (15:45)
[2020-03-13] MEDS: SENNA 8.6 MG TAB (SENOKOT) PO PRN (15:45)
[2020-03-13 22:00] VITALS: BP 119/65
[2020-03-13] MEDS: MONTELUKAST 10 MG TAB PO SCH (22:16)
[2020-03-13] MEDS: PRENATAL VITAMINS CHEWABLE TABLET PO SCH (22:16)
[2020-03-14 06:00] VITALS: BP 117/66
[2020-03-14 07:24] LABS: BASO % 0.4 % (0.0-1.0); EOS # 0.2 10^3/uL (0.0-0.5); EOS % 2.4 % (0.0-3.0); HEMATOCRIT 36.5 % (36.0-47.0); LYMPH # 1.6 10^3/uL (1.5-5.0); LYMPH % 23.1 % (24.0-44.0); MEAN CORPUSCULAR HEMOGLOBIN 28.8 pg (27.0-33.0); MEAN CORPUSCULAR HGB CONC 32.9 g/dl (32.0-36.5); MEAN CORPUSCULAR VOLUME 87.7 fl (80.0-96.0); MONO # 0.6 10^3/uL (0.0-0.8); MONO % 8.9 % (0.0-5.0); NEUTROPHILS # 4.4 10^3/uL (1.5-8.5); NEUTROPHILS % 63.6 % (36.0-66.0); PLATELET COUNT, AUTOMATED 311 10^3/uL (150-450); RED BLOOD COUNT 4.16 10^6/uL (4.00-5.40)
[2020-03-14] MEDS: ADVAIR HFA 115/21MCG INHALER INH SCH ×2 (07:31→19:30)
[2020-03-14] MEDS: ALBUTEROL 90 MCG/ACT 8GM HFA INHALER INH PRN (07:32)
[2020-03-14 07:38] LABS: BLOOD UREA NITROGEN 7 MG/DL (7-18); CALCIUM LEVEL 8.4 MG/DL (8.5-10.1); CARBON DIOXIDE LEVEL 31 MEQ/L (21-32); CHLORIDE LEVEL 101 MEQ/L (98-107); CREATININE FOR GFR 0.44 MG/DL (0.55-1.30); GLOMERULAR FILTRATION RATE > 60.0 (>51); GLUCOSE, FASTING 105 MG/DL (70-100); POTASSIUM SERUM 3.2 MEQ/L (3.5-5.1); SODIUM LEVEL 140 MEQ/L (136-145)
[2020-03-14] MEDS: FLUoxetine 20 MG CAP PO SCH (09:34)
[2020-03-14] MEDS: LACTOBACILLUS ACIDOPHILUS CAP (BACID) PO SCH ×4 (09:34→21:02)
[2020-03-14] MEDS: CETIRIZINE (ZyrTEC) 10 MG TAB PO SCH (09:34)
[2020-03-14] MEDS: BACLOFEN 10 MG TAB PO SCH ×3 (09:34→21:02)
[2020-03-14] MEDS: PANTOPRAZOLE 40MG TAB (PROTONIX) PO SCH (09:35)
[2020-03-14] MEDS: PERCOCET 5MG/325MG TAB PO PRN (09:43)
[2020-03-14] MEDS ORDERED: guaiFENesin SYRUP 200 MG/10 ML UDC PO PRN (10:30)
[2020-03-14] MEDS ORDERED: POTASSIUM CHLORIDE 10 MEQ SR TABLET PO ONE (11:00)
--- NOTE | 2020-03-14 11:29 | IPNPDOC ---
Text Note Date of Service The patient was seen on 03/14/20. NOTE Subjective: No acute overnight events reported. States she is having difficulty expectorating sputum, but otherwise no other medical complaints. Denies shortness of breath, chest pain, abdominal pain, N/V/D. Objective: VITAL SIGNS: Please see below. General: NAD, lying comfortably in bed HEENT: NC/AT, EOMI, PERRL, poor dentition Lungs: diminished breath sound right lower base Heart: +S1S2, RRR Abd: soft, NT, +BS Ext; No edema A/P: 55 yo female with PMHx as indicated presented to ED for several day history of shortness of breath, malaise, fatigue and abdominal pain. Also noted nausea, and one episode of non-bilious, non-bloody vomiting. Admitted for pneumonia and sujit al mass. #PNA - continue Levaquin - saturating well on room air, asymptomatic, no fevers, leukocytosis resolved #gait dysfunction - requiring further PT #multiple sclerosis #asthma #dysthymia #leg spasms #allergies #DVT prophylaxis - mechanical Disposition: pending further PT and OT eval; anticipating discharge in 24 hours VS,Fishbone, I+O VS, Fishbone, I+O Laboratory Tests 03/14/20 06:57 Vital Signs Date Time Temp Pulse Resp B/P (MAP) Pulse Ox O2 Delivery O2 Flow Rate FiO2 03/14/20 09:43 16 03/14/20 06:00 98.1 81 117/66 (83) 94 Room Air I&O- Last 24 Hours up to 6 AM 03/14/20 06:00 Intake Total 840 ml Output Total 0 ml Balance 840 ml IVY REILLY MD Mar 14, 2020 11:29
[2020-03-14] MEDS: SENNA 8.6 MG TAB (SENOKOT) PO PRN (11:55)
[2020-03-14] MEDS: DOCUSATE SODIUM 100 MG CAP PO PRN (11:55)
[2020-03-14 14:00] VITALS: BP 121/67
[2020-03-14] MEDS: LevoFLOXacin 750 MG TABLET PO SCH (17:04)
[2020-03-14] MEDS: PRENATAL VITAMINS CHEWABLE TABLET PO SCH (21:02)
[2020-03-14] MEDS: MONTELUKAST 10 MG TAB PO SCH (21:02)
[2020-03-14] MEDS: ACETAMINOPHEN TAB 650MG DOSE (2X325MG) PO PRN (21:03)
[2020-03-14 22:00] VITALS: BP 109/62
[2020-03-15] MEDS: ACETAMINOPHEN TAB 650MG DOSE (2X325MG) PO PRN (05:19)
[2020-03-15 05:52] LABS: HEMATOCRIT 38.6 % (36.0-47.0); HEMOGLOBIN 12.1 g/dl (12.0-15.5); MEAN CORPUSCULAR HEMOGLOBIN 27.6 pg (27.0-33.0); MEAN CORPUSCULAR HGB CONC 31.3 g/dl (32.0-36.5); MEAN CORPUSCULAR VOLUME 88.1 fl (80.0-96.0); PLATELET COUNT, AUTOMATED 374 10^3/uL (150-450); RED BLOOD COUNT 4.38 10^6/uL (4.00-5.40); WHITE BLOOD COUNT 7.8 10^3/uL (4.0-10.0)
[2020-03-15 06:00] VITALS: BP 113/69
[2020-03-15 06:25] LABS: BLOOD UREA NITROGEN 9 MG/DL (7-18); CALCIUM LEVEL 8.5 MG/DL (8.5-10.1); CARBON DIOXIDE LEVEL 30 MEQ/L (21-32); CHLORIDE LEVEL 104 MEQ/L (98-107); CREATININE FOR GFR 0.47 MG/DL (0.55-1.30); GLOMERULAR FILTRATION RATE > 60.0 (>51); GLUCOSE, FASTING 97 MG/DL (70-100); SODIUM LEVEL 139 MEQ/L (136-145)
[2020-03-15] MEDS: ADVAIR HFA 115/21MCG INHALER INH SCH (07:17)
--- NOTE | 2020-03-15 09:35 | IPNPDOC ---
Text Note Date of Service The patient was seen on 03/15/20. NOTE Discharge Addendum: Subjective: No acute overnight events reported. Feels her cough has much improved with expectoration. Denies shortness of breath, chest pain, abdominal pain, N/V/D. She was requesting to remain in the hospital until her pneumonia resolves. Objective: VITAL SIGNS: Please see below. General: NAD, lying comfortably in bed HEENT: NC/AT, EOMI, PERRL, poor dentition A/P: 55 yo female with PMHx as indicated presented to ED for several day history of shortness of breath, malaise, fatigue and abdominal pain. Also noted nausea, and one episode of non-bilious, non-bloody vomiting. Admitted for pneumonia and renal mass. #PNA - continue Levaquin on discharge - saturating well on room air, asymptomatic, no fevers, leukocytosis resolved #gait dysfunction - required further PT #multiple sclerosis #asthma #dysthymia #leg spasms #allergies #DVT prophylaxis - mechanical Disposition: discharge home - cleared by PT; has o/p follow up with her PCP 03/17/20. VS,[place], I+O VS, [place], I+O Laboratory Tests 03/15/20 05:28 Vital Signs Date Time Temp Pulse Resp B/P (MAP) Pulse Ox O2 Delivery O2 Flow Rate FiO2 03/15/20 06:00 98.1 79 17 113/69 (84) 94 Room Air I&O- Last 24 Hours up to 6 AM 03/15/20 06:00 Intake Total 1690 ml Output Total 0 ml Balance 1690 ml IVY REILLY MD Mar 15, 2020 09:35
[2020-03-15] MEDS: BACLOFEN 10 MG TAB PO SCH ×2 (10:21→13:03)
[2020-03-15] MEDS: CETIRIZINE (ZyrTEC) 10 MG TAB PO SCH (10:21)
[2020-03-15] MEDS: PANTOPRAZOLE 40MG TAB (PROTONIX) PO SCH (10:21)
[2020-03-15] MEDS: PERCOCET 5MG/325MG TAB PO PRN (10:22)
[2020-03-15] MEDS: FLUoxetine 20 MG CAP PO SCH (10:22)
[2020-03-15] MEDS: LACTOBACILLUS ACIDOPHILUS CAP (BACID) PO SCH ×3 (10:29→18:07)
[2020-03-15 14:00] VITALS: BP 100/60
[2020-03-15] MEDS: LevoFLOXacin 750 MG TABLET PO SCH (17:48)
[2020-03-15] MEDS ORDERED: MUCI600T31 PO (18:06)
== END 2020-03-15 18:40 | disposition home or self-care (01) | DRG 195 ==
LOC: M ED 14:01 → M ED INP 17:46 → M MS5PR 20:35
PROVIDERS: ADMIT Internal Medicine; ATTEND Internal Medicine
DX: J18.9 Pneumonia, unspecified organism (principal); N28.89 Other specified disorders of kidney and ureter; G35 Multiple sclerosis; K21.9 Gastro-esophageal reflux disease without esophagitis; F34.1 Dysthymic disorder; Z79.899 Other long term (current) drug therapy; Z88.0 Allergy status to penicillin; Z88.5 Allergy status to narcotic agent; Z88.8 Allergy status to other drugs, medicaments and biological substances; R26.89 Other abnormalities of gait and mobility; M62.838 Other muscle spasm; Z20.828 Contact with and (suspected) exposure to other viral communicable diseases

== ENCOUNTER → 2020-05-13 | Outpatient (CLI) | payer MEDICARE, OTHER ==
[~2020-05-13] MED LIST changes: +ALIG4CAP PO; +AUBA14TA PO; +BACL10TA8 PO; +BACL1TAB8 PO; +CETI-24 PO; +FLUO40CA PO; +LEVA750T7 PO; +MUCI600T31 PO; +PREN1TAB14 PO; +PROAAER10 INH; +PROHANCE 279.3MG/ML 15ML VIAL As Ordered ONE; +PROHANCE 279.3MG/ML 5ML VIAL As Ordered ONE; +RABE1TAB PO
--- NOTE | 2020-05-13 18:38 | REPVR ---
PROCEDURE INFORMATION: Exam: MR Thoracic Spine Without and With Contrast Exam date and time: 05/13/2020 5:17 PM Age: 55 years old Clinical indication: Condition or disease; Other: Ms; Additional info: Ms follow up on previous scans TECHNIQUE: Imaging protocol: Multiplanar magnetic resonance images of the thoracic spine without and with intravenous contrast. Contrast material: PROHANCE; Contrast volume: 17 ml; Contrast route: INTRAVENOUS (IV); COMPARISON: MRI-T SPINE W/O FOLL WITH CON 12/31/2017 4:25 PM FINDINGS: Vertebrae: Exaggeration of the thoracic kyphosis. No acute fracture seen. Spinal cord: Some limitations assessing the thoracic spinal cord on the T2 weighted imaging due to motion artifacts. No convincing hyperintense lesions. No abnormal cord enhancement. Discs/Spinal canal/Neural foramina: There is disc desiccation from T5-6 through T10-11. Disc height loss and spondylosis is [id number] from T5-6 through T7-8, mild elsewhere, not significantly changed compared to the prior study. Posterior disc contour abnormalities are again demonstrated which do not contribute to significant central spinal canal stenosis. For example, a small left paracentral disc protrusion at T10-11. Soft tissues: Unremarkable. 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 IMPRESSION: 1. Images are mildly motion degraded. 2. No evidence of thoracic cord demyelination. Electronically signed by: Liat Hernandez On 05/13/2020 18:38:07 PM
--- NOTE | 2020-05-13 18:45 | REPVR ---
PROCEDURE INFORMATION: Exam: MR Head Without and With Contrast Exam date and time: 05/13/2020 3:10 PM Age: 55 years old Clinical indication: Condition or disease; Multiple sclerosis; Additional info: [id number] TECHNIQUE: Imaging protocol: MR of the head without and with intravenous contrast. 3D rendering (Not supervised by radiologist): MIP and/or 3D reconstructed images were created by the technologist. Contrast material: PROHANCE; Contrast volume: 17 ml; Contrast route: INTRAVENOUS (IV); COMPARISON: MRI-Brain W/O FOLL BY WITH 12/31/2017 3:34 PM FINDINGS: Brain: No acute infarct or active demyelination identified on the diffusion-weighted imaging. The T2 weighted imaging demonstrates T2 hyperintense lesions in deep white matter some of which appeared elongated in morphology and perivenular distribution in keeping with the provided history of multiple sclerosis. There are callosal and pericallosal deep white matter lesions. There are scattered subcortical white matter lesions. Multiple lesions are associated with T2 shine through on the diffusion sequences, as before. No new lesions identified since prior. No enhancing lesions. The brain demonstrates mild generalized volume loss. The corpus callosum appears mildly atrophic. Multiple deep white matter lesions are associated with correlative T1 hypointensity, as before, in keeping with profound multifocal deep white matter gliosis. Cerebral ventricles: The ventricles are stable in size, mildly enlarged in keeping with volume loss. Bones/joints: Unremarkable. Paranasal sinuses: Normal as visualized. No acute sinusitis. Mastoid air cells: Normal as visualized. No mastoid effusion. Orbits: Unremarkable. Soft tissues: Unremarkable. IMPRESSION: Stable exam without evidence of active demyelination. Electronically signed by: Liat Hernandez On 05/13/2020 18:45:12 PM
--- NOTE | 2020-05-13 18:57 | REPVR ---
PROCEDURE INFORMATION: Exam: MR Cervical Spine Without and With Contrast Exam date and time: 05/13/2020 4:01 PM Age: 55 years old Clinical indication: Condition or disease; Other: Ms; Additional info: Ms follow up on previous scans TECHNIQUE: Imaging protocol: Multiplanar magnetic resonance images of the cervical spine without and with intravenous contrast. Contrast material: PROHANCE; Contrast volume: 17 ml; Contrast route: INTRAVENOUS (IV); COMPARISON: MRI-C SPINE W/O FOLL BY WITH 12/31/2017 4:03 PM FINDINGS: Vertebrae: Straightening of the cervical lordosis may be positional or due to muscle spasm. No acute fracture seen. Spinal cord: No enhancing cord lesions identified. T2 hyperintense lesions in the corner difficult to entirely exclude on the sagittal and axial T2 weighted imaging due to the degree of motion artifact. On axial image 16 of series 601, for example, a lesion is questioned in mid/posterior cord at C4 level, but without definite correlate on the sagittal imaging. There is disc desiccation throughout. Disc height loss and spondylosis is moderate at C5-C6 and C6-C7, mild at C4-C5. Endplate inflammation with enhancement at C6-C7 is likely degenerative. Right periarticular enhancement at C2-C3 and left periarticular enhancement at C3-C4 is likely degenerative, present on the basis of facet arthropathy. C2-C3: No significant interval change. Central disc protrusion does not contribute to central spinal canal stenosis. No significant foraminal stenoses. C3-C4: No significant interval change. Subtle central disc protrusion does not contribute to central spinal canal stenosis. No significant foraminal stenoses. C4-C5: No significant interval change. Right paracentral disc protrusion is again demonstrated which indents cervical cord. Central spinal canal stenosis is mild. No significant foraminal stenoses. C5-C6: No significant interval change. Disc osteophyte complex does not contribute to central spinal canal stenosis. Uncovertebral and facet arthropathy causing mild bilateral neural foraminal stenoses. C6-C7: No significant interval change. Disc osteophyte complex does not contribute to central spinal canal stenosis. Uncovertebral and facet arthropathy causing mild bilateral neural foraminal stenoses. C7-T1: No significant interval change. Mild disc bulge does not contribute to central spinal canal stenosis. No significant foraminal stenoses. Vertebral arteries: Expected flow voids in the vertebral arteries. Soft tissues: Unremarkable. IMPRESSION: 1. Images are motion degraded. The degree of motion artifact does limit assessment of the cervical cord. In particular, demyelinating plaques cannot be excluded. 2. No enhancing cord lesions identified. 3. Degenerative changes again demonstrated, as above. Electronically signed by: Liat Hernandez On 05/13/2020 18:57:09 PM
== END ==
LOC: M RAD 15:07
PROVIDERS: ATTEND Psychiatry & Neurology Neurology
DX: G35 Multiple sclerosis (principal)
CPT/HCPCS: 70553; 72156; 72157; A9576

== ENCOUNTER 2020-05-14 12:15 | Outpatient (CLI) | payer MEDICARE, OTHER ==
[~2020-05-14] VITALS: Ht 165.1 cm; Wt 85.0 kg
[2020-05-14 12:15] VITALS: BP 119/59
[~2020-05-14 12:15] MED LIST changes: +ALBUTEROL SULFATE 2.5 MG/0.5 ML INH NEB SOLN INH PRN; +EPINEPHrine INJ 1 MG/ML 1ML AMP IM PRN; -PROHANCE 279.3MG/ML 15ML VIAL As Ordered ONE; -PROHANCE 279.3MG/ML 5ML VIAL As Ordered ONE; +diphenhydrAMINE 50MG/ML VIAL (J1200) IV PRN; +methylPREDNISolone 125MG 2ML VIAL IV PRN
[2020-05-14] MEDS ORDERED: NATALIZUMAB OVER 1 HOUR IV ONE ×2 (12:30)
[2020-05-14 13:50] VITALS: BP 119/59
[2020-05-14 14:15] VITALS: BP 116/62
[2020-05-14 15:00] VITALS: BP 118/56
[2020-05-14 16:00] VITALS: BP 101/68
== END 2020-05-14 16:00 | disposition home or self-care (01) ==
LOC: M INFU 12:15
PROVIDERS: ATTEND Psychiatry & Neurology Neurology
DX: G35 Multiple sclerosis (principal); Z88.1 Allergy status to other antibiotic agents; Z88.8 Allergy status to other drugs, medicaments and biological substances
CPT/HCPCS: 96365; J2323

== ENCOUNTER 2020-06-11 12:50 | Outpatient (CLI) | payer MEDICARE, OTHER ==
[~2020-06-11] VITALS: Ht 170.2 cm; Wt 85.0 kg
[~2020-06-11 12:50] MED LIST changes: +NATALIZUMAB OVER 1 HOUR IV ONE; +NS 1,000 ML IV SCH
[2020-06-11 13:00] VITALS: BP 101/55
[2020-06-11 14:50] VITALS: BP 115/53
[2020-06-11 15:30] VITALS: BP 100/68
== END 2020-06-11 15:30 | disposition home or self-care (01) ==
LOC: M INFU 12:50
PROVIDERS: ATTEND Psychiatry & Neurology Neurology
DX: G35 Multiple sclerosis (principal); Z88.0 Allergy status to penicillin; Z88.8 Allergy status to other drugs, medicaments and biological substances
CPT/HCPCS: 96365; J2323

== ENCOUNTER 2020-07-09 12:48 | Outpatient (CLI) | payer MEDICARE, OTHER ==
[~2020-07-09] VITALS: Ht 170.2 cm; Wt 85.0 kg
[~2020-07-09 12:48] MED LIST changes: -RABE1TAB PO; +RABE1TAB4 PO
[2020-07-09 13:11] VITALS: BP 99/55
[2020-07-09 14:42] VITALS: BP 112/53
== END 2020-07-09 15:15 | disposition home or self-care (01) ==
LOC: M INFU 12:48
PROVIDERS: ATTEND Psychiatry & Neurology Neurology
DX: G35 Multiple sclerosis (principal); Z88.0 Allergy status to penicillin; Z88.8 Allergy status to other drugs, medicaments and biological substances
CPT/HCPCS: 96365; J2323

== ENCOUNTER 2020-08-06 12:47 | Outpatient (CLI) | payer MEDICARE, OTHER ==
[~2020-08-06] VITALS: Ht 170.2 cm; Wt 85.0 kg
[2020-08-06 12:50] VITALS: BP 119/56
[2020-08-06 16:00] VITALS: BP 120/54
== END 2020-08-06 16:00 | disposition home or self-care (01) ==
LOC: M INFU 12:47
PROVIDERS: ATTEND Psychiatry & Neurology Neurology
DX: G35 Multiple sclerosis (principal); Z88.0 Allergy status to penicillin; Z88.8 Allergy status to other drugs, medicaments and biological substances
CPT/HCPCS: 96365; J2323

== ENCOUNTER 2020-10-01 12:43 | Outpatient (CLI) | payer MEDICARE, OTHER ==
[~2020-10-01] VITALS: Ht 200.7 cm; Wt 85.0 kg
[~2020-10-01 12:43] MED LIST changes: +NS 1,000 ML IV ONE; -NS 1,000 ML IV SCH
[2020-10-01 12:45] VITALS: BP 116/58
[2020-10-01 13:40] VITALS: BP 116/58
[2020-10-01 14:22] VITALS: BP 121/58
[2020-10-01 14:30] VITALS: BP 131/83
== END 2020-10-01 14:30 | disposition home or self-care (01) ==
LOC: M INFU 12:43
PROVIDERS: ATTEND Psychiatry & Neurology Neurology
DX: G35 Multiple sclerosis (principal); Z88.0 Allergy status to penicillin; Z88.8 Allergy status to other drugs, medicaments and biological substances
CPT/HCPCS: 96365; J2323

== ENCOUNTER 2021-01-21 12:05 | Outpatient (CLI) | payer OTHER ==
[~2021-01-21] VITALS: Ht 170.2 cm; Wt 85.0 kg
[~2021-01-21 12:05] MED LIST changes: -ALBUTEROL SULFATE 2.5 MG/0.5 ML INH NEB SOLN INH PRN; -EPINEPHrine INJ 1 MG/ML 1ML AMP IM PRN; -NS 1,000 ML IV ONE; -diphenhydrAMINE 50MG/ML VIAL (J1200) IV PRN; -methylPREDNISolone 125MG 2ML VIAL IV PRN
[2021-01-21 12:15] VITALS: BP 119/61
== END 2021-01-21 14:00 | disposition home or self-care (01) ==
LOC: M INFU 12:05
PROVIDERS: ATTEND Psychiatry & Neurology Neurology
DX: G35 Multiple sclerosis (principal); Z88.0 Allergy status to penicillin; Z88.8 Allergy status to other drugs, medicaments and biological substances
CPT/HCPCS: 96365; J2323

== ENCOUNTER → 2021-02-07 | Outpatient (CLI) | payer MEDICARE, OTHER ==
[~2021-02-07] MED LIST changes: -NATALIZUMAB OVER 1 HOUR IV ONE; +PROHANCE 279.3MG/ML 15ML VIAL As Ordered ONE; +PROHANCE 279.3MG/ML 5ML VIAL As Ordered ONE
--- NOTE | 2021-02-09 18:14 | REPVR ---
PROCEDURE INFORMATION: Exam: MR Cervical Spine Without and With Contrast Exam date and time: 02/07/2021 6:36 PM Age: 55 years old Clinical indication: Condition or disease; Patient HX: HX of ms TECHNIQUE: Imaging protocol: Multiplanar magnetic resonance images of the cervical spine without and with contrast. Contrast material: PROHANCE; Contrast volume: 16 ml; Contrast route: INTRAVENOUS (IV); COMPARISON: MRI-C SPINE W/O FOLL BY WITH 05/13/2020 4:09 PM FINDINGS: Vertebrae: Unremarkable. Spinal cord: Examination of the spinal cord demonstrates vague focus of increased signal in the left hemicord at C3 level, bilaterally at C3-C4 and on the right at C4. There is no evidence of abnormal enhancement on post gadolinium imaging. Remainder of the cord is unremarkable. C2-C3: Bulging annulus and inferiorly extruded mid central disc protrusion at C2-C3 extending 4.4 mm below the superior endplate of C3 resulting in minimal mid cord impingement. C3-C4: Diffusely bulging annulus at C3-C4 effacing the ventral subarachnoid space without cord impingement. There is moderate foraminal narrowing on the left. C4-C5: Bulging annulus with midline disc protrusion at C4-C5 effaces the ventral subarachnoid space with minimal mid cord impingement. No significant foraminal stenosis. C5-C6: Broad posterior disc protrusion at C5-C6 effaces the ventral subarachnoid space with mild cord impingement. There is moderate bilateral foraminal narrowing. C6-C7: Broad posterior disc protrusion at C6-C7 effaces the ventral subarachnoid space without significant cord impingement. There is mild to moderate bilateral foraminal narrowing. C7-T1: No significant disc disease. No significant spinal stenosis. Soft tissues: Unremarkable. Vertebral arteries: Expected flow voids in the vertebral arteries. IMPRESSION: 1. Vague foci of increased signal on T2 weighted imaging may represent artifact although considering history foci of demyelination are not excluded. 2. Degenerative spondylosis with a mid central disc protrusion at C2-C3 resulting in minimal mid cord impingement and a bulging annulus at C4-C5 resulting in mild cord impingement. 3. Multilevel disc protrusions without cord impingement demonstrated as well. 4. Multilevel foraminal stenosis as described above. Electronically signed by: Lucio Boswell On 02/09/2021 18:14:53 PM
--- NOTE | 2021-02-09 18:28 | REPVR ---
PROCEDURE INFORMATION: Exam: MR Head Without and With Contrast Exam date and time: 02/07/2021 6:36 PM Age: 55 years old Clinical indication: Condition or disease; Multiple sclerosis; Additional info: Ms TECHNIQUE: Imaging protocol: MR of the head without and with intravenous contrast. Contrast material: PROHANCE; Contrast volume: 16 ml; Contrast route: INTRAVENOUS (IV); COMPARISON: MRI-Brain W/O FOLL BY WITH 05/13/2020 3:48 PM FINDINGS: Brain: There are multiple bilateral foci of T2 lengthening demonstrated on T2 and FLAIR weighted imaging in the periventricular centrum semiovale and subcortical white matter several of which are oriented perpendicular to the long axis of the ventricles and in a perivenular distribution consistent with foci of the myelination. Diffusion-weighted demonstrate multiple foci T2 shine through within portions of the lesions without evidence of active demyelination. No abnormal enhancement is demonstrated on post-contrast imaging. Cerebral ventricles: Normal. No ventriculomegaly. Bones/joints: Unremarkable. Paranasal sinuses: Normal as visualized. No acute sinusitis. Mastoid air cells: Normal as visualized. No mastoid effusion. Orbital cavity: Unremarkable. Soft tissues: Unremarkable. IMPRESSION: Multiple stable foci of demyelination as described above without active demyelination demonstrated on diffusion-weighted or postcontrast imaging. Electronically signed by: Lucio Boswell On 02/09/2021 18:27:41 PM
--- NOTE | 2021-02-09 18:35 | REPVR ---
PROCEDURE INFORMATION: Exam: MR Thoracic Spine Without and With Contrast Exam date and time: 02/07/2021 6:36 PM Age: 55 years old Clinical indication: Condition or disease; Other: Ms TECHNIQUE: Imaging protocol: Multiplanar magnetic resonance images of the thoracic spine without and with contrast. Contrast material: PROHANCE; Contrast volume: 16 ml; Contrast route: INTRAVENOUS (IV); COMPARISON: MRI-T SPINE W/O FOLL WITH CON 05/13/2020 4:32 PM FINDINGS: Vertebrae: Unremarkable. Spinal cord: Examination of the spinal cord does not demonstrate any foci of demyelination or abnormal enhancement. Discs/Spinal canal/Neural foramina: Small posterior disc protrusion at T6-7, right paracentral disc protrusion at T8-9, small right paracentral disc protrusion at T9-10 and left paracentral disc protrusion at T10-11 without cord impingement. Findings are stable in comparison to the prior study of 05/13/2020. Soft tissues: Unremarkable. IMPRESSION: 1. Examination of the spinal cord does not demonstrate any foci of demyelination or abnormal enhancement. 2. Degenerative discogenic changes in the thoracic spine with multilevel disc protrusions without cord impingement, stable in comparison to the prior study. Electronically signed by: Lucio Boswell On 02/09/2021 18:35:04 PM
== END ==
LOC: M RAD 15:24
PROVIDERS: ATTEND Psychiatry & Neurology Neurology
DX: G35 Multiple sclerosis (principal)
CPT/HCPCS: 70553; 72156; 72157; A9576

== ENCOUNTER 2021-02-25 15:49 | Outpatient (CLI) | payer OTHER ==
[~2021-02-25] VITALS: Ht 170.2 cm; Wt 85.0 kg
[~2021-02-25 15:49] MED LIST changes: +NATALIZUMAB OVER 1 HOUR IV ONE; -PROHANCE 279.3MG/ML 15ML VIAL As Ordered ONE; -PROHANCE 279.3MG/ML 5ML VIAL As Ordered ONE
[2021-02-25 16:04] VITALS: BP 112/56
[2021-02-25 17:21] VITALS: BP 110/54
== END 2021-02-25 17:30 | disposition home or self-care (01) ==
LOC: M INFU 15:49
PROVIDERS: ATTEND Psychiatry & Neurology Neurology
DX: G35 Multiple sclerosis (principal); Z88.0 Allergy status to penicillin; Z88.8 Allergy status to other drugs, medicaments and biological substances

== ENCOUNTER → 2021-03-15 | Outpatient (REF) | payer OTHER ==
[~2021-03-15] MED LIST changes: -NATALIZUMAB OVER 1 HOUR IV ONE
[2021-03-16 12:28] LABS: APPEARANCE, URINE CLEAR (CLEAR); BACTERIA, URINE AUTO NEGATIVE (NEGATIVE); BILIRUBIN, URINE AUTO NEGATIVE (NEGATIVE); BLOOD, URINE BLOOD NEGATIVE (NEGATIVE); COLOR, URINE YELLOW (YELLOW); GLUCOSE, URINE (UA) AUTO NEGATIVE (NEGATIVE); KETONE, URINE AUTO NEGATIVE (NEGATIVE); LEUKOCYTE ESTERASE, URINE AUTO NEGATIVE (NEGATIVE); NITRITE, URINE AUTO NEGATIVE (NEGATIVE); PROTEIN, URINE AUTO NEGATIVE (NEGATIVE); RBC, URINE AUTO 0 /HPF (0-3); SPECIFIC GRAVITY URINE AUTO 1.014 (1.002-1.035); SQUAMOUS EPITHELIAL CELL UR AU 0 /HPF (0-6); UROBILINOGEN, URINE AUTO 0.2 mg/dL (0.0-2.0); WBC, URINE AUTO 0 /HPF (0-3)
== END ==
LOC: M SFHCLERA 11:31
PROVIDERS: ATTEND Family Medicine
DX: R82.998 Other abnormal findings in urine (principal)

== ENCOUNTER 2021-03-25 12:10 | Outpatient (CLI) | payer OTHER ==
[~2021-03-25] VITALS: Ht 167.6 cm; Wt 85.0 kg
[~2021-03-25 12:10] MED LIST changes: +NATALIZUMAB OVER 1 HOUR IV ONE
[2021-03-25 13:06] VITALS: BP 107/58
[2021-03-25 14:24] VITALS: BP 107/49
== END 2021-03-25 14:20 | disposition home or self-care (01) ==
LOC: M INFU 12:10
PROVIDERS: ATTEND Psychiatry & Neurology Neurology
DX: G35 Multiple sclerosis (principal); Z88.0 Allergy status to penicillin; Z88.8 Allergy status to other drugs, medicaments and biological substances
CPT/HCPCS: 96365; J2323

== ENCOUNTER 2021-04-27 15:32 | Outpatient (CLI) | payer OTHER ==
[~2021-04-27] VITALS: Ht 167.6 cm; Wt 85.0 kg
[2021-04-27 15:35] VITALS: BP_SYST 55
[2021-04-27 17:20] VITALS: BP 107/54
== END 2021-04-27 17:20 | disposition home or self-care (01) ==
LOC: M INFU 15:32
PROVIDERS: ATTEND Psychiatry & Neurology Neurology
DX: G35 Multiple sclerosis (principal); Z88.0 Allergy status to penicillin; Z88.8 Allergy status to other drugs, medicaments and biological substances
CPT/HCPCS: 96365; J2323

== ENCOUNTER 2021-05-25 12:18 | Outpatient (CLI) | payer OTHER ==
[~2021-05-25] VITALS: Ht 167.6 cm; Wt 80.4 kg
[2021-05-25 12:35] VITALS: BP 122/67
[2021-05-25 14:05] VITALS: BP 112/58
== END 2021-05-25 14:15 | disposition home or self-care (01) ==
LOC: M INFU 12:18
PROVIDERS: ATTEND Psychiatry & Neurology Neurology
DX: G35 Multiple sclerosis (principal); Z88.0 Allergy status to penicillin
CPT/HCPCS: 96365; J2323

== ENCOUNTER → 2021-07-14 | Outpatient (CLI) | payer OTHER ==
[~2021-07-14] MED LIST changes: -NATALIZUMAB OVER 1 HOUR IV ONE
[2021-07-14 13:49] LABS: BASO % 0.5 % (0.0-1.0); EOS # 0.3 10^3/uL (0.0-0.5); EOS % 3.5 % (0.0-3.0); HEMATOCRIT 40.1 % (36.0-47.0); HEMOGLOBIN 12.8 g/dl (12.0-15.5); LYMPH # 3.1 10^3/uL (1.5-5.0); LYMPH % 39.6 % (24.0-44.0); MEAN CORPUSCULAR HEMOGLOBIN 28.6 pg (27.0-33.0); MEAN CORPUSCULAR HGB CONC 31.9 g/dl (32.0-36.5); MEAN CORPUSCULAR VOLUME 89.5 fl (80.0-96.0); MONO # 0.6 10^3/uL (0.0-0.8); MONO % 7.1 % (2.0-8.0); NEUTROPHILS # 3.8 10^3/uL (1.5-8.5); NEUTROPHILS % 49.2 % (36.0-66.0); PLATELET COUNT, AUTOMATED 236 10^3/uL (150-450); RED BLOOD COUNT 4.48 10^6/uL (4.00-5.40); WHITE BLOOD COUNT 7.7 10^3/uL (4.0-10.0)
[2021-07-14 14:28] LABS: ALBUMIN 3.3 GM/DL (3.2-5.2); ALT/SGPT 25 U/L (12-78); BILIRUBIN,TOTAL 0.4 MG/DL (0.2-1.0); BLOOD UREA NITROGEN 14 MG/DL (7-18); CALCIUM LEVEL 8.7 MG/DL (8.5-10.1); CARBON DIOXIDE LEVEL 32 MEQ/L (21-32); CHLORIDE LEVEL 107 MEQ/L (98-107); CREATININE FOR GFR 0.53 MG/DL (0.55-1.30); GLOMERULAR FILTRATION RATE > 60.0 (>51); GLUCOSE, FASTING 85 MG/DL (70-100); POTASSIUM SERUM 4.1 MEQ/L (3.5-5.1); SODIUM LEVEL 144 MEQ/L (136-145); TOTAL PROTEIN 6.4 GM/DL (6.4-8.2)
== END ==
LOC: M LAB 13:00
PROVIDERS: ATTEND Psychiatry & Neurology Neurology
DX: Z00.00 Encounter for general adult medical examination without abnormal findings (principal); G35 Multiple sclerosis; Z79.899 Other long term (current) drug therapy

== ENCOUNTER → 2021-07-14 | Outpatient (CLI) | payer OTHER ==
[2021-08-05 11:31] LABS: CHOLESTEROL RISK RATIO 2.763 (<5)
== END ==
LOC: M LAB 13:03
PROVIDERS: ATTEND Student in an Organized Health Care Education/Training Program
DX: G35 Multiple sclerosis (principal); Z79.899 Other long term (current) drug therapy

== ENCOUNTER 2021-08-02 10:04 | Outpatient (CLI) | payer OTHER ==
[~2021-08-02] VITALS: Ht 170.2 cm; Wt 77.3 kg
[~2021-08-02 10:04] MED LIST changes: +NATALIZUMAB OVER 1 HOUR IV ONE
[2021-08-02 11:06] VITALS: BP 118/57
== END 2021-08-02 12:50 | disposition home or self-care (01) ==
LOC: M INFU 10:04
PROVIDERS: ATTEND Psychiatry & Neurology Neurology
DX: G35 Multiple sclerosis (principal); Z88.0 Allergy status to penicillin; Z88.8 Allergy status to other drugs, medicaments and biological substances
CPT/HCPCS: 96365; J2323

== ENCOUNTER 2021-10-31 12:57 | Outpatient (CLI) | payer OTHER ==
[~2021-10-31] VITALS: Ht 170.2 cm; Wt 77.0 kg
[~2021-10-31 12:57] MED LIST changes: -AUBA14TA PO; +TERI14TA PO
[2021-10-31 13:05] VITALS: BP 122/58
[2021-10-31 14:55] VITALS: BP 116/58
== END 2021-10-31 14:55 | disposition home or self-care (01) ==
LOC: M INFU 12:57
PROVIDERS: ATTEND Psychiatry & Neurology Neurology
DX: G35 Multiple sclerosis (principal); Z88.0 Allergy status to penicillin; Z88.6 Allergy status to analgesic agent; Z88.8 Allergy status to other drugs, medicaments and biological substances
CPT/HCPCS: 96365; J2323

== ENCOUNTER 2021-12-30 13:10 | Outpatient (CLI) | payer OTHER ==
[~2021-12-30] VITALS: Ht 170.2 cm; Wt 77.0 kg
[2021-12-30 12:15] VITALS: BP 111/53
[2021-12-30 14:00] VITALS: BP 107/49
== END 2021-12-30 14:10 | disposition home or self-care (01) ==
LOC: M INFU 13:10
PROVIDERS: ATTEND Psychiatry & Neurology Neurology
DX: G35 Multiple sclerosis (principal); Z88.0 Allergy status to penicillin; Z88.6 Allergy status to analgesic agent
CPT/HCPCS: 96365; J2323

== ENCOUNTER 2022-01-31 12:45 | Outpatient (CLI) | payer OTHER ==
[2022-01-31 12:45] VITALS: BP 115/53
[~2022-01-31 12:45] MED LIST changes: +NATALIZUMAB OVER 1 HOUR IV ONE
== END 2022-01-31 14:10 | disposition home or self-care (01) ==
LOC: M INFU 12:45
PROVIDERS: ATTEND Psychiatry & Neurology Neurology
DX: G35 Multiple sclerosis (principal); Z88.0 Allergy status to penicillin; Z88.6 Allergy status to analgesic agent; Z88.8 Allergy status to other drugs, medicaments and biological substances
CPT/HCPCS: 36415; 80053; 85025; 96365; J2323

== ENCOUNTER → 2022-01-31 | Outpatient (CLI) | payer OTHER ==
[~2022-01-31] MED LIST changes: -NATALIZUMAB OVER 1 HOUR IV ONE
[2022-01-31 15:47] LABS: BASO % 0.6 % (0.0-1.0); EOS # 0.2 10^3/uL (0.0-0.5); EOS % 2.3 % (0.0-3.0); HEMOGLOBIN 13.1 g/dl (12.0-15.5); LYMPH # 2.3 10^3/uL (1.5-5.0); LYMPH % 36.1 % (24.0-44.0); MEAN CORPUSCULAR HEMOGLOBIN 28.1 pg (27.0-33.0); MEAN CORPUSCULAR HGB CONC 31.2 g/dl (32.0-36.5); MEAN CORPUSCULAR VOLUME 89.9 fl (80.0-96.0); MONO # 0.5 10^3/uL (0.0-0.8); MONO % 8.3 % (2.0-8.0); NEUTROPHILS # 3.4 10^3/uL (1.5-8.5); NEUTROPHILS % 52.4 % (36.0-66.0); PLATELET COUNT, AUTOMATED 242 10^3/uL (150-450); RED BLOOD COUNT 4.67 10^6/uL (4.00-5.40); WHITE BLOOD COUNT 6.5 10^3/uL (4.0-10.0)
[2022-01-31 16:28] LABS: ALBUMIN 3.3 GM/DL (3.2-5.2); ALT/SGPT 20 U/L (12-78); BILIRUBIN,TOTAL 0.5 MG/DL (0.2-1.0); BLOOD UREA NITROGEN 10 MG/DL (7-18); CALCIUM LEVEL 8.7 MG/DL (8.5-10.1); CARBON DIOXIDE LEVEL 31 MEQ/L (21-32); CHLORIDE LEVEL 105 MEQ/L (98-107); CREATININE FOR GFR 0.58 MG/DL (0.55-1.30); GLOMERULAR FILTRATION RATE > 60.0 (>51); GLUCOSE, FASTING 79 MG/DL (70-100); POTASSIUM SERUM 4.7 MEQ/L (3.5-5.1); SODIUM LEVEL 139 MEQ/L (136-145); TOTAL PROTEIN 6.7 GM/DL (6.4-8.2)
== END ==
LOC: M LAB 14:42
PROVIDERS: ATTEND Psychiatry & Neurology Neurology
DX: G35 Multiple sclerosis (principal); Z79.899 Other long term (current) drug therapy

== ENCOUNTER → 2022-02-10 | Outpatient (CLI) | payer OTHER ==
[~2022-02-10] MED LIST changes: -NATALIZUMAB OVER 1 HOUR IV ONE
== END ==
LOC: M PLARAD 12:39
PROVIDERS: ATTEND Psychiatry & Neurology Neurology
DX: G35 Multiple sclerosis (principal); M50.21 Other cervical disc displacement, high cervical region; M50.221 Other cervical disc displacement at C4-C5 level; M50.222 Other cervical disc displacement at C5-C6 level; M50.223 Other cervical disc displacement at C6-C7 level; M50.23 Other cervical disc displacement, cervicothoracic region

== ENCOUNTER 2022-02-28 12:21 | Outpatient (CLI) | payer OTHER ==
[~2022-02-28] VITALS: Ht 170.2 cm; Wt 77.0 kg
[2022-02-28] MEDS ORDERED: NATALIZUMAB OVER 1 HOUR IV ONE ×2 (12:30)
[2022-02-28 12:39] VITALS: BP 118/58
[2022-02-28 14:59] VITALS: BP 114/54
== END 2022-02-28 14:45 | disposition home or self-care (01) ==
LOC: M INFU 12:21
PROVIDERS: ATTEND Psychiatry & Neurology Neurology
DX: G35 Multiple sclerosis (principal); Z88.0 Allergy status to penicillin; Z88.6 Allergy status to analgesic agent
CPT/HCPCS: 96365; J2323

== ENCOUNTER 2022-04-25 12:30 | Outpatient (CLI) | payer OTHER ==
[~2022-04-25] VITALS: Ht 170.2 cm; Wt 78.6 kg
[~2022-04-25 12:30] MED LIST changes: +NATALIZUMAB OVER 1 HOUR IV ONE
[2022-04-25 12:33] VITALS: BP 105/54
== END 2022-04-25 14:40 | disposition home or self-care (01) ==
LOC: M INFU 12:30
PROVIDERS: ATTEND Psychiatry & Neurology Neurology
DX: G35 Multiple sclerosis (principal); Z88.0 Allergy status to penicillin; Z88.6 Allergy status to analgesic agent; Z88.8 Allergy status to other drugs, medicaments and biological substances
CPT/HCPCS: 96365; J2323

== ENCOUNTER 2022-06-20 12:35 | Outpatient (CLI) | payer OTHER ==
[~2022-06-20] VITALS: Ht 170.2 cm; Wt 78.6 kg
[2022-06-20 12:40] VITALS: BP 122/54
[2022-06-20 14:35] VITALS: BP 116/55
== END 2022-06-20 14:35 | disposition home or self-care (01) ==
LOC: M INFU 12:35
PROVIDERS: ATTEND Psychiatry & Neurology Neurology
DX: G35 Multiple sclerosis (principal); Z88.0 Allergy status to penicillin; Z88.6 Allergy status to analgesic agent; Z88.8 Allergy status to other drugs, medicaments and biological substances
CPT/HCPCS: 96365; J2323

== ENCOUNTER 2022-08-15 13:00 | Outpatient (CLI) | payer OTHER ==
[2022-08-15 13:00] VITALS: BP 122/57
[~2022-08-15 13:00] MED LIST changes: +MONT-5 PO; -SING10TA32 PO
[2022-08-15 14:30] VITALS: BP 113/49
[2022-08-15 14:35] VITALS: BP 113/49
== END 2022-08-15 14:35 | disposition home or self-care (01) ==
LOC: M INFU 13:00
PROVIDERS: ATTEND Psychiatry & Neurology Neurology
DX: G35 Multiple sclerosis (principal); Z88.0 Allergy status to penicillin; Z88.6 Allergy status to analgesic agent; Z88.8 Allergy status to other drugs, medicaments and biological substances
CPT/HCPCS: 96365; J2323

== ENCOUNTER 2022-09-12 12:38 | Outpatient (CLI) | payer OTHER ==
[~2022-09-12] VITALS: Ht 170.2 cm; Wt 79.0 kg
[2022-09-12 12:50] VITALS: BP 126/58
== END 2022-09-12 14:10 | disposition home or self-care (01) ==
LOC: M INFU 12:38
PROVIDERS: ATTEND Psychiatry & Neurology Neurology
DX: G35 Multiple sclerosis (principal); Z88.0 Allergy status to penicillin; Z88.6 Allergy status to analgesic agent; Z88.8 Allergy status to other drugs, medicaments and biological substances
CPT/HCPCS: 96365; J2323

== ENCOUNTER → 2022-10-06 | Outpatient (CLI) | payer OTHER ==
[~2022-10-06] MED LIST changes: -NATALIZUMAB OVER 1 HOUR IV ONE
[2022-10-06 15:05] LABS: BASO # 0.1 10^3/uL (0.0-0.2); BASO % 0.7 % (0.0-1.0); EOS # 0.2 10^3/uL (0.0-0.5); EOS % 3.2 % (0.0-3.0); HEMATOCRIT 41.3 % (36.0-47.0); HEMOGLOBIN 13.4 g/dl (12.0-15.5); LYMPH # 3.5 10^3/uL (1.5-5.0); LYMPH % 46.3 % (24.0-44.0); MEAN CORPUSCULAR HEMOGLOBIN 28.3 pg (27.0-33.0); MEAN CORPUSCULAR HGB CONC 32.4 g/dl (32.0-36.5); MEAN CORPUSCULAR VOLUME 87.3 fl (80.0-96.0); MONO # 0.6 10^3/uL (0.0-0.8); MONO % 8.4 % (2.0-8.0); NEUTROPHILS # 3.1 10^3/uL (1.5-8.5); PLATELET COUNT, AUTOMATED 222 10^3/uL (150-450); RED BLOOD COUNT 4.73 10^6/uL (4.00-5.40); WHITE BLOOD COUNT 7.6 10^3/uL (4.0-10.0)
[2022-10-06 15:31] LABS: ALBUMIN 3.5 G/DL (3.2-5.2); ALKALINE PHOSPHATASE 80 U/L (46-116); ALT/SGPT 22 U/L (7.0-40); AST/SGOT 19 U/L (<34); BILIRUBIN,TOTAL 0.6 MG/DL (0.3-1.2); BLOOD UREA NITROGEN 11 MG/DL (9-23); CALCIUM LEVEL 8.1 MG/DL (8.5-10.1); CARBON DIOXIDE LEVEL 32 MMOL/L (20-31); CHLORIDE LEVEL 106 MMOL/L (98-107); CREATININE FOR GFR 0.66 MG/DL (0.55-1.30); GLOMERULAR FILTRATION RATE > 60.0 (>51); GLUCOSE, FASTING 85 MG/DL (60-100); POTASSIUM SERUM 4.6 MMOL/L (3.5-5.1); SODIUM LEVEL 141 MMOL/L (136-145); TOTAL PROTEIN 6.6 G/DL (5.7-8.2)
[2022-10-06 15:34] LABS: THYROID STIMULATING HORMONE 0.934 uIU/ML (0.55-4.78); THYROXINE (T4) 10.9 UG/DL (4.5-10.9)
[2022-10-06 15:35] LABS: FREE THYROXINE INDEX 4.4 % (1.3-4.8); TOTAL 25(OH) VITAMIN D 34.3 NG/ML (20.0-100.0)
== END ==
LOC: M LAB 14:28
PROVIDERS: ATTEND Psychiatry & Neurology Neurology
DX: G35 Multiple sclerosis (principal); E03.9 Hypothyroidism, unspecified; E55.9 Vitamin D deficiency, unspecified; Z79.899 Other long term (current) drug therapy

== ENCOUNTER 2022-10-10 12:45 | Outpatient (CLI) | payer OTHER ==
[~2022-10-10] VITALS: Ht 167.6 cm; Wt 79.0 kg
[~2022-10-10 12:45] MED LIST changes: +NATALIZUMAB OVER 1 HOUR IV ONE
[2022-10-10 12:55] VITALS: BP 127/58
== END 2022-10-10 14:20 | disposition home or self-care (01) ==
LOC: M INFU 12:45
PROVIDERS: ATTEND Psychiatry & Neurology Neurology
DX: G35 Multiple sclerosis (principal); Z88.0 Allergy status to penicillin; Z88.6 Allergy status to analgesic agent
CPT/HCPCS: 96365; J2323

== ENCOUNTER → 2022-10-19 | Outpatient (CLI) | payer OTHER ==
[~2022-10-19] MED LIST changes: -NATALIZUMAB OVER 1 HOUR IV ONE
== END ==
LOC: M RAD 10:02
PROVIDERS: ATTEND Physician Assistant Medical
DX: J32.9 Chronic sinusitis, unspecified (principal)

== ENCOUNTER → 2022-11-07 | Outpatient (CLI) | payer OTHER ==
[~2022-11-07] VITALS: Ht 167.6 cm; Wt 79.0 kg
[~2022-11-07] MED LIST changes: +NATALIZUMAB OVER 1 HOUR IV ONE
[2022-11-07 13:42] VITALS: BP 129/59; O2SAT 97
[2022-11-07 14:35] VITALS: BP 110/54; O2SAT 97
== END ==
LOC: M INFU 13:16
PROVIDERS: ATTEND Psychiatry & Neurology Neurology
DX: G35 Multiple sclerosis (principal); Z88.0 Allergy status to penicillin; Z88.6 Allergy status to analgesic agent
CPT/HCPCS: 96365; J2323

== ENCOUNTER 2022-12-05 13:10 | Outpatient (CLI) | payer OTHER ==
[2022-12-05 13:13] VITALS: BP 110/55; O2SAT 96
[2022-12-05 14:25] VITALS: BP 111/59; O2SAT 100
== END 2022-12-05 14:30 ==
LOC: M INFU 13:10
PROVIDERS: ATTEND Psychiatry & Neurology Neurology
DX: G35 Multiple sclerosis (principal); Z88.0 Allergy status to penicillin; Z88.6 Allergy status to analgesic agent; Z88.8 Allergy status to other drugs, medicaments and biological substances
CPT/HCPCS: 96365; J2323

== ENCOUNTER 2023-01-30 13:30 | Outpatient (CLI) | payer OTHER ==
[~2023-01-30] VITALS: Ht 167.6 cm; Wt 93.2 kg
[2023-01-30 13:30] VITALS: BP 126/56; O2SAT 95
[2023-01-30 15:10] VITALS: BP 118/56; O2SAT 96
== END 2023-01-30 15:10 | disposition home or self-care (01) ==
LOC: M INFU 13:30
PROVIDERS: ATTEND Psychiatry & Neurology Neurology
DX: G35 Multiple sclerosis (principal); Z88.0 Allergy status to penicillin; Z88.8 Allergy status to other drugs, medicaments and biological substances
CPT/HCPCS: 96365; J2323

== ENCOUNTER → 2023-02-27 | Outpatient (CLI) | payer OTHER ==
[~2023-02-27] MED LIST changes: -NATALIZUMAB OVER 1 HOUR IV ONE
[2023-02-27 13:50] LABS: BASO # 0.1 10^3/uL (0.0-0.2); BASO % 0.7 % (0.0-1.0); EOS # 0.3 10^3/uL (0.0-0.5); EOS % 3.1 % (0.0-3.0); HEMATOCRIT 38.1 % (36.0-47.0); HEMOGLOBIN 12.2 g/dl (12.0-15.5); LYMPH # 2.9 10^3/uL (1.5-5.0); LYMPH % 32.9 % (24.0-44.0); MEAN CORPUSCULAR HEMOGLOBIN 27.9 pg (27.0-33.0); MEAN CORPUSCULAR VOLUME 87.2 fl (80.0-96.0); MONO # 0.7 10^3/uL (0.0-0.8); MONO % 7.9 % (2.0-8.0); NEUTROPHILS # 4.7 10^3/uL (1.5-8.5); NEUTROPHILS % 53.7 % (36.0-66.0); PLATELET COUNT, AUTOMATED 348 10^3/uL (150-450); RED BLOOD COUNT 4.37 10^6/uL (4.00-5.40); WHITE BLOOD COUNT 8.7 10^3/uL (4.0-10.0)
[2023-02-27 14:20] LABS: ALBUMIN 2.9 G/DL (3.2-5.2); ALKALINE PHOSPHATASE 82 U/L (46-116); ALT/SGPT 20 U/L (7.0-40); AST/SGOT 11 U/L (<34); BILIRUBIN,TOTAL 0.5 MG/DL (0.3-1.2); BLOOD UREA NITROGEN 9 MG/DL (9-23); CALCIUM LEVEL 8.3 MG/DL (8.5-10.1); CARBON DIOXIDE LEVEL 33 MMOL/L (20-31); CHLORIDE LEVEL 106 MMOL/L (98-107); CHOLESTEROL LEVEL 129 MG/DL (<200); CHOLESTEROL RISK RATIO 3.73 (<5); CREATININE FOR GFR 0.59 MG/DL (0.55-1.30); FREE T4 1.24 NG/DL (0.89-1.76); GLOMERULAR FILTRATION RATE > 60.0 (>51); GLUCOSE, FASTING 110 MG/DL (60-100); HDL CHOLESTEROL 34.5 MG/DL (>40); LDL CHOLESTEROL 81.7 MG/DL (<100); NON-HDL-C 94.5 MG/DL; POTASSIUM SERUM 3.7 MMOL/L (3.5-5.1); SODIUM LEVEL 143 MMOL/L (136-145); THYROID STIMULATING HORMONE 0.704 uIU/ML (0.55-4.78); TOTAL PROTEIN 6.5 G/DL (5.7-8.2); TRIGLYCERIDES LEVEL 64 MG/DL (<150)
== END ==
LOC: M LAB 11:57
PROVIDERS: ATTEND Physician Assistant
DX: R91.8 Other nonspecific abnormal finding of lung field (principal); R05.8 Other specified cough; R60.0 Localized edema; J45.901 Unspecified asthma with (acute) exacerbation; Z79.899 Other long term (current) drug therapy

== ENCOUNTER → 2023-03-03 | Outpatient (REF) | payer OTHER ==
[2023-03-05 16:51] LABS: APPEARANCE, URINE TURBID (CLEAR); BACTERIA, URINE AUTO 2+ (NEGATIVE); BILIRUBIN, URINE AUTO NEGATIVE (NEGATIVE); BLOOD, URINE BLOOD NEGATIVE (NEGATIVE); COLOR, URINE AMBER (YELLOW); GLUCOSE, URINE (UA) AUTO NEGATIVE (NEGATIVE); KETONE, URINE AUTO NEGATIVE (NEGATIVE); LEUKOCYTE ESTERASE, URINE AUTO 2+ (NEGATIVE); MUCUS, URINE SMALL (NEGATIVE); NITRITE, URINE AUTO POSITIVE (NEGATIVE); PROTEIN, URINE AUTO 2+ mg/dL (NEGATIVE); RBC, URINE AUTO 0 /HPF (0-3); SPECIFIC GRAVITY URINE AUTO 1.019 (1.002-1.035); SQUAMOUS EPITHELIAL CELL UR AU 1 /HPF (0-6); TRIPLE PHOSPHATE CRYSTALS SMALL; UROBILINOGEN, URINE AUTO 0.2 mg/dL (0.0-2.0); WBC, URINE AUTO 10 /HPF (0-3)
== END ==
LOC: M SFHCLERA 15:42
PROVIDERS: ATTEND Physician Assistant
DX: R05.8 Other specified cough (principal); R60.0 Localized edema

== ENCOUNTER 2023-03-18 18:41 | Emergency (ER) | payer OTHER ==
[~2023-03-18] VITALS: Ht 170.2 cm; Wt 84.1 kg
[2023-03-18 18:42] VITALS: BP 117/58; TEMP 99.3; O2SAT 100
[2023-03-18] MEDS ORDERED: BACITRACIN OINTMENT 30GM TUBE TOP PRN (19:35)
== END 2023-03-18 19:59 | disposition home or self-care (01) ==
LOC: M ED 18:41
DX: S61.213A Laceration without foreign body of left middle finger without damage to nail, initial encounter (principal); S61.211A Laceration without foreign body of left index finger without damage to nail, initial encounter; W26.0XXA Contact with knife, initial encounter; G35 Multiple sclerosis; F12.10 Cannabis abuse, uncomplicated; Y92.009 Unspecified place in unspecified non-institutional (private) residence as the place of occurrence of the external cause; Y93.G1 Activity, food preparation and clean up; Y99.9 Unspecified external cause status; Z88.0 Allergy status to penicillin; Z88.5 Allergy status to narcotic agent; Z88.8 Allergy status to other drugs, medicaments and biological substances; Z79.52 Long term (current) use of systemic steroids; Z79.810 Long term (current) use of selective estrogen receptor modulators (SERMs); Z79.899 Other long term (current) drug therapy

== ENCOUNTER 2023-03-27 12:57 | Outpatient (CLI) | payer OTHER ==
[~2023-03-27] VITALS: Ht 170.2 cm; Wt 84.0 kg
[2023-03-27] MEDS ORDERED: NATALIZUMAB OVER 1 HOUR IV ONE ×2 (13:00)
[2023-03-27 13:05] VITALS: BP 123/58; O2SAT 99
[2023-03-27 14:00] VITALS: BP 123/58; TEMP 36.8; O2SAT 99
[2023-03-27 14:50] VITALS: BP 105/50; O2SAT 99
== END 2023-03-27 14:50 ==
LOC: M INFU 12:57
PROVIDERS: ATTEND Psychiatry & Neurology Neurology
DX: G35 Multiple sclerosis (principal); Z88.0 Allergy status to penicillin; Z88.6 Allergy status to analgesic agent; Z88.8 Allergy status to other drugs, medicaments and biological substances
CPT/HCPCS: 96365; J2323

== ENCOUNTER 2023-05-24 13:15 | Outpatient (CLI) | payer MEDICARE, OTHER ==
[~2023-05-24] VITALS: Ht 172.7 cm; Wt 84.0 kg
[2023-05-24 13:14] VITALS: BP 105/52; TEMP 97.5; O2SAT 97
[~2023-05-24 13:15] MED LIST changes: +NATALIZUMAB OVER 1 HOUR IV ONE
[2023-05-24 14:45] VITALS: BP 120/58; TEMP 98.2; O2SAT 95
== END 2023-05-24 14:46 | disposition home or self-care (01) ==
LOC: M INFU 13:15
PROVIDERS: ATTEND Psychiatry & Neurology Neurology
DX: G35 Multiple sclerosis (principal); Z88.0 Allergy status to penicillin; Z88.6 Allergy status to analgesic agent; Z88.8 Allergy status to other drugs, medicaments and biological substances
CPT/HCPCS: 96365; J2323

== ENCOUNTER 2023-07-18 18:03 | Inpatient (IN) | payer MEDICARE, OTHER ==
[~2023-07-18] VITALS: Ht 170.2 cm; Wt 91.0 kg
[~2023-07-18 18:03] MED LIST changes: -NATALIZUMAB OVER 1 HOUR IV ONE
[2023-07-18 20:21] LABS: BASO % 0.4 % (0.0-1.0); EOS # 0.1 10^3/uL (0.0-0.5); EOS % 0.7 % (0.0-3.0); HEMATOCRIT 34.9 % (36.0-47.0); HEMOGLOBIN 11.6 g/dl (12.0-15.5); LYMPH # 2.3 10^3/uL (1.5-5.0); LYMPH % 22.9 % (24.0-44.0); MEAN CORPUSCULAR HEMOGLOBIN 27.6 pg (27.0-33.0); MEAN CORPUSCULAR HGB CONC 33.2 g/dl (32.0-36.5); MEAN CORPUSCULAR VOLUME 82.9 fl (80.0-96.0); MONO # 0.8 10^3/uL (0.0-0.8); MONO % 8.3 % (2.0-8.0); NEUTROPHILS # 6.7 10^3/uL (1.5-8.5); NEUTROPHILS % 67.5 % (36.0-66.0); PLATELET COUNT, AUTOMATED 259 10^3/uL (150-450); RED BLOOD COUNT 4.21 10^6/uL (4.00-5.40)
[2023-07-18 20:30] LABS: CK-MB VALUE MASS 9.3 NG/ML (<3.6)
[2023-07-18] MEDS: MORPHINE 2 MG/ML 1ML VIAL IV ONE (20:30)
[2023-07-18 20:32] LABS: ALBUMIN 2.9 G/DL (3.2-5.2); ALKALINE PHOSPHATASE 70 U/L (46-116); ALT/SGPT 36 U/L (7.0-40); AST/SGOT 68 U/L (<34); BILIRUBIN,DIRECT 0.2 MG/DL (<0.4); BILIRUBIN,TOTAL 0.5 MG/DL (0.3-1.2); BLOOD UREA NITROGEN 13 MG/DL (9-23); CALCIUM LEVEL 7.9 MG/DL (8.5-10.1); CARBON DIOXIDE LEVEL 27 MMOL/L (20-31); CHLORIDE LEVEL 108 MMOL/L (98-107); CREATININE FOR GFR 0.65 MG/DL (0.55-1.30); GLOMERULAR FILTRATION RATE > 60.0 (>51); GLUCOSE, FASTING 92 MG/DL (60-100); POTASSIUM SERUM 3.3 MMOL/L (3.5-5.1); SODIUM LEVEL 138 MMOL/L (136-145); TOTAL PROTEIN 5.9 G/DL (5.7-8.2)
[2023-07-18 20:35] LABS: THYROID STIMULATING HORMONE 2.065 uIU/ML (0.55-4.78)
[2023-07-18 20:44] LABS: CPK CREATINE PHOSPHOKINASE 1393 U/L (34-145); MB/CK RELATIVE INDEX 0.66 (< OR =4)
[2023-07-18 20:45] LABS: RSV AMPLIFICATION NEGATIVE (NEGATIVE)
[2023-07-18] MEDS: POTASSIUM CHLORIDE 10MEQ SR TABLET PO ONE (21:53)
[2023-07-18] MEDS: NS 1,000 ML IV SCH (21:53)
[2023-07-18] MEDS ORDERED: ALBU8.5H INH (23:31)
[2023-07-18] MEDS ORDERED: PROBCAP14 PO (23:38)
[2023-07-18] MEDS ORDERED: OMEP-173 PO (23:41)
[2023-07-18] MEDS ORDERED: LEVOTAB10 PO (23:56)
[2023-07-19] VITALS (9 sets, daily range): BP systolic 105–127; BP diastolic 50–62; TEMP 99.1–101.5; O2SAT 91–94
[2023-07-19] MEDS ORDERED: BACL10TA2 PO (00:07)
[2023-07-19] MEDS ORDERED: HOME MED LIST COMPLETE! XX SCH ×2 (00:15)
[2023-07-19] MEDS: ACETAMINOPHEN TAB 650MG DOSE (2X325MG) PO PRN (00:57)
[2023-07-19] MEDS ORDERED: POTASSIUM CHLORIDE 10MEQ SR TABLET PO ONE (05:15)
[2023-07-19 07:43] LABS: ALBUMIN 2.4 G/DL (3.2-5.2); ALKALINE PHOSPHATASE 59 U/L (46-116); ALT/SGPT 33 U/L (7.0-40); AST/SGOT 53 U/L (<34); BILIRUBIN,TOTAL 0.6 MG/DL (0.3-1.2); BLOOD UREA NITROGEN 9 MG/DL (9-23); CARBON DIOXIDE LEVEL 24 MMOL/L (20-31); CHLORIDE LEVEL 107 MMOL/L (98-107); CREATININE FOR GFR 0.57 MG/DL (0.55-1.30); GLOMERULAR FILTRATION RATE > 60.0 (>51); GLUCOSE, FASTING 122 MG/DL (60-100); POTASSIUM SERUM 3.2 MMOL/L (3.5-5.1); SODIUM LEVEL 138 MMOL/L (136-145); TOTAL PROTEIN 5.2 G/DL (5.7-8.2)
[2023-07-19] MEDS ORDERED: VANCOMYCIN HCL 1,000 MG, VIAL MATE ADAPTER 1 EACH in D5W 250 ML IV SCH (07:55)
[2023-07-19] MEDS ORDERED: ALBUTEROL 90 MCG/ACT 8GM HFA INHALER INH PRN (08:05)
[2023-07-19 08:23] LABS: BASO % 0.1 % (0.0-1.0); HEMATOCRIT 32.9 % (36.0-47.0); HEMOGLOBIN 10.9 g/dl (12.0-15.5); LYMPH # 0.9 10^3/uL (1.5-5.0); LYMPH % 9.7 % (24.0-44.0); MEAN CORPUSCULAR HEMOGLOBIN 27.8 pg (27.0-33.0); MEAN CORPUSCULAR HGB CONC 33.1 g/dl (32.0-36.5); MEAN CORPUSCULAR VOLUME 83.9 fl (80.0-96.0); MONO # 0.6 10^3/uL (0.0-0.8); MONO % 6.9 % (2.0-8.0); NEUTROPHILS # 7.3 10^3/uL (1.5-8.5); PLATELET COUNT, AUTOMATED 217 10^3/uL (150-450); RED BLOOD COUNT 3.92 10^6/uL (4.00-5.40); WHITE BLOOD COUNT 8.9 10^3/uL (4.0-10.0)
[2023-07-19] MEDS: ADVAIR HFA 115/21MCG INHALER INH SCH (08:38)
[2023-07-19 09:19] LABS: C REACTIVE PROTEIN QUANTITATIV 9.5 MG/DL (<1.0)
[2023-07-19 09:31] LABS: PROCALCITONIN 0.18 ng/ml
[2023-07-19] MEDS: BACLOFEN 10 MG TAB PO SCH ×2 (09:59→15:54)
[2023-07-19] MEDS: CETIRIZINE (ZyrTEC) 10 MG TAB PO SCH (09:59)
[2023-07-19] MEDS: FLUoxetine 20MG CAP PO SCH (09:59)
[2023-07-19] MEDS: OMEPRAZOLE 20MG CAP PO SCH (09:59)
[2023-07-19] MEDS: VANCOMYCIN HCL 1,000 MG, VIAL MATE ADAPTER 1 EACH in D5W 250 ML IV ONE ×2 (10:00→12:10)
[2023-07-19] MEDS: cefTRIAXone SOD 2 GM in D5W MINI-BAG PLUS 50 ML IV SCH (10:00)
[2023-07-19] MEDS: ENOXAPARIN 40MG/0.4ML SYRINGE (J1650 PER 10MG) SC SCH (10:05)
[2023-07-19] MEDS: NS 1,000 ML IV SCH (10:30)
[2023-07-19] MEDS: NYSTATIN 100,000 UNITS/GM TOPICAL PWD 15GM TOP SCH ×2 (10:54→21:16)
[2023-07-19] MEDS: POTASSIUM CHLORIDE 10MEQ SR TABLET PO ONE (10:54)
[2023-07-19] MEDS: KETOROLAC 30 MG/ML 1ML VIAL IV PRN (16:39)
[2023-07-19] MEDS: MONTELUKAST 10 MG TAB PO SCH (20:35)
[2023-07-19] MEDS: VANCOMYCIN HCL 750 MG, VIAL MATE ADAPTER 1 EACH in D5W 250 ML IV SCH (20:35)
[2023-07-19] MEDS: traMADol 50 MG TAB PO PRN (20:49)
[2023-07-19] MEDS: VANCOMYCIN HCL 500 MG in D5W MINI-BAG PLUS 100 ML IV SCH (21:51)
[2023-07-20] MEDS: MORPHINE 2 MG/ML 1ML VIAL IV ONE (04:20)
[2023-07-20 04:59] VITALS: BP 106/62; TEMP 99; O2SAT 95
[2023-07-20 06:02] LABS: BASO % 0.3 % (0.0-1.0); EOS # 0.1 10^3/uL (0.0-0.5); EOS % 0.8 % (0.0-3.0); HEMATOCRIT 31.4 % (36.0-47.0); HEMOGLOBIN 10.3 g/dl (12.0-15.5); LYMPH # 1.5 10^3/uL (1.5-5.0); MEAN CORPUSCULAR HEMOGLOBIN 27.5 pg (27.0-33.0); MEAN CORPUSCULAR HGB CONC 32.8 g/dl (32.0-36.5); MONO # 0.7 10^3/uL (0.0-0.8); MONO % 7.2 % (2.0-8.0); NEUTROPHILS # 7.4 10^3/uL (1.5-8.5); NEUTROPHILS % 76.3 % (36.0-66.0); PLATELET COUNT, AUTOMATED 195 10^3/uL (150-450); RED BLOOD COUNT 3.74 10^6/uL (4.00-5.40); WHITE BLOOD COUNT 9.7 10^3/uL (4.0-10.0)
[2023-07-20 06:31] LABS: VANCOMYCIN RANDOM 10.4 UG/ML
[2023-07-20 06:33] LABS: ALKALINE PHOSPHATASE 56 U/L (46-116); ALT/SGPT 34 U/L (7.0-40); AST/SGOT 46 U/L (<34); BILIRUBIN,TOTAL 0.5 MG/DL (0.3-1.2); BLOOD UREA NITROGEN 9 MG/DL (9-23); CALCIUM LEVEL 7.1 MG/DL (8.5-10.1); CARBON DIOXIDE LEVEL 28 MMOL/L (20-31); CHLORIDE LEVEL 110 MMOL/L (98-107); CREATININE FOR GFR 0.57 MG/DL (0.55-1.30); GLOMERULAR FILTRATION RATE > 60.0 (>51); GLUCOSE, FASTING 93 MG/DL (60-100); POTASSIUM SERUM 3.4 MMOL/L (3.5-5.1); SODIUM LEVEL 141 MMOL/L (136-145); TOTAL PROTEIN 4.8 G/DL (5.7-8.2)
[2023-07-20] MEDS: KETOROLAC 30 MG/ML 1ML VIAL IV SCH (08:14)
[2023-07-20] MEDS ORDERED: PILL CUTTER 1 EACH XX PRN (08:20)
[2023-07-20] MEDS: carisoprodoL 350 MG TAB PO SCH (10:52)
[2023-07-20 14:00] VITALS: BP 105/62; TEMP 99.1; O2SAT 95
[2023-07-20] MEDS: MORPHINE 2 MG/ML 1ML VIAL IV PRN (18:43)
[2023-07-20 20:00] VITALS: BP 118/58; TEMP 98.2; O2SAT 94
[2023-07-20] MEDS: oxyCODONE 5MG TAB PO PRN (20:26)
[2023-07-21 06:00] VITALS: BP 114/59; TEMP 98.9; O2SAT 92
[2023-07-21 06:05] LABS: BASO % 0.2 % (0.0-1.0); EOS # 0.2 10^3/uL (0.0-0.5); EOS % 1.9 % (0.0-3.0); HEMATOCRIT 31.2 % (36.0-47.0); HEMOGLOBIN 10.2 g/dl (12.0-15.5); LYMPH # 1.5 10^3/uL (1.5-5.0); LYMPH % 18.7 % (24.0-44.0); MEAN CORPUSCULAR HEMOGLOBIN 27.3 pg (27.0-33.0); MEAN CORPUSCULAR HGB CONC 32.7 g/dl (32.0-36.5); MEAN CORPUSCULAR VOLUME 83.4 fl (80.0-96.0); MONO # 0.7 10^3/uL (0.0-0.8); MONO % 8.9 % (2.0-8.0); NEUTROPHILS # 5.6 10^3/uL (1.5-8.5); NEUTROPHILS % 69.9 % (36.0-66.0); PLATELET COUNT, AUTOMATED 226 10^3/uL (150-450); RED BLOOD COUNT 3.74 10^6/uL (4.00-5.40)
[2023-07-21 06:29] LABS: BLOOD UREA NITROGEN 10 MG/DL (9-23); CALCIUM LEVEL 7.5 MG/DL (8.5-10.1); CARBON DIOXIDE LEVEL 29 MMOL/L (20-31); CHLORIDE LEVEL 109 MMOL/L (98-107); CPK CREATINE PHOSPHOKINASE 664 U/L (34-145); CREATININE FOR GFR 0.57 MG/DL (0.55-1.30); GLOMERULAR FILTRATION RATE > 60.0 (>51); GLUCOSE, FASTING 92 MG/DL (60-100); POTASSIUM SERUM 3.8 MMOL/L (3.5-5.1); SODIUM LEVEL 143 MMOL/L (136-145)
[2023-07-21 14:20] VITALS: BP 111/60; TEMP 98.6; O2SAT 95
[2023-07-21 22:00] VITALS: BP 129/80; TEMP 98.4; O2SAT 92
[2023-07-22 06:00] VITALS: BP 117/62; TEMP 98.1; O2SAT 93
[2023-07-22 06:40] LABS: BASO % 0.5 % (0.0-1.0); EOS # 0.2 10^3/uL (0.0-0.5); EOS % 2.3 % (0.0-3.0); HEMATOCRIT 30.8 % (36.0-47.0); HEMOGLOBIN 10.1 g/dl (12.0-15.5); LYMPH # 1.5 10^3/uL (1.5-5.0); LYMPH % 23.1 % (24.0-44.0); MEAN CORPUSCULAR HEMOGLOBIN 27.5 pg (27.0-33.0); MEAN CORPUSCULAR HGB CONC 32.8 g/dl (32.0-36.5); MEAN CORPUSCULAR VOLUME 83.9 fl (80.0-96.0); MONO # 0.6 10^3/uL (0.0-0.8); MONO % 8.3 % (2.0-8.0); NEUTROPHILS # 4.3 10^3/uL (1.5-8.5); NEUTROPHILS % 65.2 % (36.0-66.0); PLATELET COUNT, AUTOMATED 285 10^3/uL (150-450); RED BLOOD COUNT 3.67 10^6/uL (4.00-5.40); WHITE BLOOD COUNT 6.6 10^3/uL (4.0-10.0)
[2023-07-22 07:07] LABS: BLOOD UREA NITROGEN 12 MG/DL (9-23); CALCIUM LEVEL 7.3 MG/DL (8.5-10.1); CARBON DIOXIDE LEVEL 30 MMOL/L (20-31); CHLORIDE LEVEL 109 MMOL/L (98-107); CREATININE FOR GFR 0.51 MG/DL (0.55-1.30); GLOMERULAR FILTRATION RATE > 60.0 (>51); GLUCOSE, FASTING 90 MG/DL (60-100); POTASSIUM SERUM 3.4 MMOL/L (3.5-5.1); SODIUM LEVEL 143 MMOL/L (136-145)
[2023-07-22] MEDS: POTASSIUM CHLORIDE 10MEQ SR TABLET PO SCH ×2 (08:46→20:21)
[2023-07-22 14:30] VITALS: BP 117/62; TEMP 99.6; O2SAT 90
[2023-07-22] MEDS: MOM 30ML SUSPENSION UDC PO PRN (14:51)
[2023-07-22] MEDS ORDERED: KETOROLAC 30 MG/ML 1ML VIAL IV PRN (15:25)
[2023-07-22] MEDS: PANTOPRAZOLE 40MG VIAL IV ONE (16:29)
[2023-07-22] MEDS: FUROSEMIDE 40MG/4ML VIAL IV ONE (16:30)
[2023-07-22] MEDS: SODIUM CHLORIDE HYPERTONIC 3% 4ML NEB SOL INH SCH (16:45)
[2023-07-22] MEDS: SODIUM CHLORIDE HYPERTONIC 3% 4ML NEB SOL INH ONE (16:45)
[2023-07-22] MEDS: ALBUTEROL SULFATE 2.5MG/0.5ML INH NEB SOLN NEB ONE (16:45)
[2023-07-22 17:36] LABS: PROCALCITONIN 0.11 ng/ml
[2023-07-22] MEDS: ALBUTEROL SULFATE 2.5MG/0.5ML INH NEB SOLN NEB SCH (19:32)
[2023-07-22] MEDS ORDERED: SODIUM CHLORIDE HYPERTONIC 3% 4ML NEB SOL INH SCH (20:00)
[2023-07-22] MEDS ORDERED: ALBUTEROL SULFATE 2.5MG/0.5ML INH NEB SOLN NEB SCH (20:00)
[2023-07-22] MEDS: PANTOPRAZOLE 40MG TAB (PROTONIX) PO SCH (20:21)
[2023-07-22 20:23] VITALS: BP 116/65; TEMP 101; O2SAT 91
[2023-07-22] MEDS ORDERED: DIMETHICONE 2% OINTMENT(VANICREAM) 70GM TUBE TOP PRN (21:05)
[2023-07-22 21:30] VITALS: TEMP 100.2
[2023-07-22 23:50] VITALS: TEMP 99.5
[2023-07-23 05:38] VITALS: BP 114/65; TEMP 99.4; O2SAT 92
[2023-07-23 05:45] LABS: BASO % 0.3 % (0.0-1.0); EOS # 0.2 10^3/uL (0.0-0.5); EOS % 2.4 % (0.0-3.0); HEMATOCRIT 31.6 % (36.0-47.0); HEMOGLOBIN 10.5 g/dl (12.0-15.5); LYMPH # 1.7 10^3/uL (1.5-5.0); LYMPH % 22.8 % (24.0-44.0); MEAN CORPUSCULAR HEMOGLOBIN 27.8 pg (27.0-33.0); MEAN CORPUSCULAR HGB CONC 33.2 g/dl (32.0-36.5); MEAN CORPUSCULAR VOLUME 83.6 fl (80.0-96.0); MONO # 0.7 10^3/uL (0.0-0.8); MONO % 9.9 % (2.0-8.0); NEUTROPHILS # 4.7 10^3/uL (1.5-8.5); NEUTROPHILS % 63.5 % (36.0-66.0); PLATELET COUNT, AUTOMATED 341 10^3/uL (150-450); RED BLOOD COUNT 3.78 10^6/uL (4.00-5.40); WHITE BLOOD COUNT 7.4 10^3/uL (4.0-10.0)
[2023-07-23] MEDS: VANICREAM MOISTURIZING SKIN CREAM 113GM TUBE TOP PRN (05:47)
[2023-07-23 06:13] LABS: BLOOD UREA NITROGEN 12 MG/DL (9-23); CALCIUM LEVEL 7.5 MG/DL (8.5-10.1); CARBON DIOXIDE LEVEL 31 MMOL/L (20-31); CHLORIDE LEVEL 104 MMOL/L (98-107); GLOMERULAR FILTRATION RATE > 60.0 (>51); GLUCOSE, FASTING 102 MG/DL (60-100); POTASSIUM SERUM 3.4 MMOL/L (3.5-5.1); SODIUM LEVEL 140 MMOL/L (136-145)
[2023-07-23] MEDS: PIPERACILLIN/TAZOBACTAM SOD 3.375 GM in D5W MINI-BAG PLUS 50 ML IV SCH (09:26)
[2023-07-23] MEDS: INFLUENZA QUADRIVALENT PF VACCINE 0.5ML SYRINGE IM.IMMUN ONE (09:29)
[2023-07-23 09:35] VITALS: TEMP 99.8
[2023-07-23] MEDS: GASTROGRAFIN SOLUTION 30ML PO SCH (13:51)
[2023-07-23 14:00] VITALS: BP 113/59; TEMP 100.2; O2SAT 90
[2023-07-23] MEDS ORDERED: ISOVUE-370 76% 100ML VIAL As Ordered ONE (14:34)
[2023-07-23 15:53] VITALS: TEMP 99.6
[2023-07-23 21:05] VITALS: BP 114/61; TEMP 98.6; O2SAT 90
[2023-07-24 05:43] VITALS: BP 118/61; TEMP 98.1; O2SAT 94
[2023-07-24 05:49] LABS: BASO % 0.3 % (0.0-1.0); EOS # 0.2 10^3/uL (0.0-0.5); EOS % 2.7 % (0.0-3.0); HEMATOCRIT 31.2 % (36.0-47.0); HEMOGLOBIN 10.3 g/dl (12.0-15.5); LYMPH # 1.7 10^3/uL (1.5-5.0); LYMPH % 18.9 % (24.0-44.0); MEAN CORPUSCULAR HEMOGLOBIN 27.6 pg (27.0-33.0); MEAN CORPUSCULAR VOLUME 83.6 fl (80.0-96.0); MONO % 11.3 % (2.0-8.0); NEUTROPHILS # 5.8 10^3/uL (1.5-8.5); NEUTROPHILS % 65.7 % (36.0-66.0); PLATELET COUNT, AUTOMATED 352 10^3/uL (150-450); RED BLOOD COUNT 3.73 10^6/uL (4.00-5.40); WHITE BLOOD COUNT 8.8 10^3/uL (4.0-10.0)
[2023-07-24 06:18] LABS: BLOOD UREA NITROGEN 9 MG/DL (9-23); CALCIUM LEVEL 7.7 MG/DL (8.5-10.1); CARBON DIOXIDE LEVEL 29 MMOL/L (20-31); CHLORIDE LEVEL 107 MMOL/L (98-107); CREATININE FOR GFR 0.51 MG/DL (0.55-1.30); GLOMERULAR FILTRATION RATE > 60.0 (>51); GLUCOSE, FASTING 105 MG/DL (60-100); POTASSIUM SERUM 4.1 MMOL/L (3.5-5.1); SODIUM LEVEL 139 MMOL/L (136-145)
[2023-07-24] MEDS: FUROSEMIDE 40MG/4ML VIAL IV ONE (13:03)
[2023-07-24 14:00] VITALS: BP 117/61; TEMP 99.3; O2SAT 90
[2023-07-24 19:55] VITALS: BP 110/53; TEMP 99.9; O2SAT 92
[2023-07-25 05:00] VITALS: BP 124/71; TEMP 97.3; O2SAT 93
[2023-07-25 05:51] LABS: BASO % 0.4 % (0.0-1.0); EOS # 0.3 10^3/uL (0.0-0.5); EOS % 3.9 % (0.0-3.0); HEMATOCRIT 32.5 % (36.0-47.0); HEMOGLOBIN 10.6 g/dl (12.0-15.5); LYMPH # 1.8 10^3/uL (1.5-5.0); LYMPH % 23.6 % (24.0-44.0); MEAN CORPUSCULAR HEMOGLOBIN 27.5 pg (27.0-33.0); MEAN CORPUSCULAR HGB CONC 32.6 g/dl (32.0-36.5); MEAN CORPUSCULAR VOLUME 84.2 fl (80.0-96.0); MONO # 0.8 10^3/uL (0.0-0.8); MONO % 10.9 % (2.0-8.0); NEUTROPHILS # 4.5 10^3/uL (1.5-8.5); NEUTROPHILS % 59.9 % (36.0-66.0); PLATELET COUNT, AUTOMATED 371 10^3/uL (150-450); RED BLOOD COUNT 3.86 10^6/uL (4.00-5.40); WHITE BLOOD COUNT 7.5 10^3/uL (4.0-10.0)
[2023-07-25 06:21] LABS: BLOOD UREA NITROGEN 10 MG/DL (9-23); CALCIUM LEVEL 7.9 MG/DL (8.5-10.1); CARBON DIOXIDE LEVEL 30 MMOL/L (20-31); CHLORIDE LEVEL 107 MMOL/L (98-107); CREATININE FOR GFR 0.61 MG/DL (0.55-1.30); GLOMERULAR FILTRATION RATE > 60.0 (>51); GLUCOSE, FASTING 101 MG/DL (60-100); POTASSIUM SERUM 4.2 MMOL/L (3.5-5.1); SODIUM LEVEL 141 MMOL/L (136-145)
[2023-07-25 14:00] VITALS: BP 104/53; TEMP 98.2; O2SAT 90
[2023-07-25 20:00] VITALS: BP 107/55; TEMP 98.5; O2SAT 92
[2023-07-26 05:52] LABS: BASO % 0.4 % (0.0-1.0); EOS # 0.3 10^3/uL (0.0-0.5); EOS % 4.7 % (0.0-3.0); HEMATOCRIT 33.2 % (36.0-47.0); HEMOGLOBIN 10.6 g/dl (12.0-15.5); LYMPH # 1.8 10^3/uL (1.5-5.0); LYMPH % 25.8 % (24.0-44.0); MEAN CORPUSCULAR HEMOGLOBIN 27.2 pg (27.0-33.0); MEAN CORPUSCULAR HGB CONC 31.9 g/dl (32.0-36.5); MEAN CORPUSCULAR VOLUME 85.1 fl (80.0-96.0); MONO # 0.6 10^3/uL (0.0-0.8); MONO % 9.2 % (2.0-8.0); NEUTROPHILS % 58.3 % (36.0-66.0); PLATELET COUNT, AUTOMATED 408 10^3/uL (150-450); WHITE BLOOD COUNT 6.9 10^3/uL (4.0-10.0)
[2023-07-26 06:00] VITALS: BP 103/59; TEMP 98.2; O2SAT 90
[2023-07-26 06:21] LABS: BLOOD UREA NITROGEN 13 MG/DL (9-23); CALCIUM LEVEL 7.9 MG/DL (8.5-10.1); CARBON DIOXIDE LEVEL 30 MMOL/L (20-31); CHLORIDE LEVEL 109 MMOL/L (98-107); CREATININE FOR GFR 0.62 MG/DL (0.55-1.30); GLOMERULAR FILTRATION RATE > 60.0 (>51); GLUCOSE, FASTING 97 MG/DL (60-100); SODIUM LEVEL 142 MMOL/L (136-145)
[2023-07-26 07:30] VITALS: BP 124/86; TEMP 98.2; O2SAT 91
[2023-07-26 08:00] VITALS: BP 124/86; TEMP 98.7; O2SAT 91
[2023-07-26 09:50] VITALS: BP 124/86; TEMP 98.2; O2SAT 91
[2023-07-26 14:23] VITALS: BP 116/68; TEMP 98.2; O2SAT 92
[2023-07-26 21:00] VITALS: BP 102/58; TEMP 97.9; O2SAT 91
[2023-07-27 06:00] VITALS: BP 102/55; TEMP 97.5; O2SAT 94
[2023-07-27 08:47] VITALS: O2SAT 95
[2023-07-27] MEDS: FUROSEMIDE 40MG/4ML VIAL IV ONE (11:59)
[2023-07-27 14:00] VITALS: BP 107/58; TEMP 99; O2SAT 91
[2023-07-27 20:20] VITALS: BP 101/53; TEMP 98.8; O2SAT 91
[2023-07-28 06:00] VITALS: BP 107/56; TEMP 97.3; O2SAT 92
[2023-07-28 06:55] LABS: BLOOD UREA NITROGEN 15 MG/DL (9-23); CALCIUM LEVEL 8.4 MG/DL (8.5-10.1); CARBON DIOXIDE LEVEL 30 MMOL/L (20-31); CHLORIDE LEVEL 105 MMOL/L (98-107); CREATININE FOR GFR 0.69 MG/DL (0.55-1.30); GLOMERULAR FILTRATION RATE > 60.0 (>51); GLUCOSE, FASTING 97 MG/DL (60-100); POTASSIUM SERUM 4.1 MMOL/L (3.5-5.1); SODIUM LEVEL 140 MMOL/L (136-145)
[2023-07-28] MEDS ORDERED: ALBUTEROL SULFATE 2.5MG/0.5ML INH NEB SOLN NEB PRN (10:15)
[2023-07-28] MEDS: AUGMENTIN 875 MG TAB PO SCH (12:07)
[2023-07-28 12:30] VITALS: BP 99/51
[2023-07-28] MEDS: FUROSEMIDE 40MG/4ML VIAL IV ONE (13:13)
[2023-07-28 14:00] VITALS: BP 101/51; TEMP 98.7; O2SAT 93
[2023-07-28] MEDS ORDERED: ALBUTEROL SULFATE 2.5MG/0.5ML INH NEB SOLN NEB SCH (14:00)
[2023-07-28] MEDS ORDERED: SODIUM CHLORIDE HYPERTONIC 3% 4ML NEB SOL INH SCH (14:00)
[2023-07-28 20:36] VITALS: BP 106/54; TEMP 98.1; O2SAT 97
[2023-07-29] MEDS: PERCOCET 5MG/325MG TAB PO PRN (03:16)
[2023-07-29 03:39] LABS: BASO # 0.1 10^3/uL (0.0-0.2); BASO % 0.9 % (0.0-1.0); EOS # 0.2 10^3/uL (0.0-0.5); EOS % 3.6 % (0.0-3.0); HEMATOCRIT 36.3 % (36.0-47.0); HEMOGLOBIN 11.6 g/dl (12.0-15.5); LYMPH % 31.7 % (24.0-44.0); MEAN CORPUSCULAR HEMOGLOBIN 27.2 pg (27.0-33.0); MONO # 0.5 10^3/uL (0.0-0.8); MONO % 7.8 % (2.0-8.0); NEUTROPHILS # 3.6 10^3/uL (1.5-8.5); NEUTROPHILS % 55.5 % (36.0-66.0); PLATELET COUNT, AUTOMATED 452 10^3/uL (150-450); RED BLOOD COUNT 4.27 10^6/uL (4.00-5.40); WHITE BLOOD COUNT 6.4 10^3/uL (4.0-10.0)
[2023-07-29 04:03] LABS: ALBUMIN 2.3 G/DL (3.2-5.2); ALKALINE PHOSPHATASE 61 U/L (46-116); ALT/SGPT 31 U/L (7.0-40); AST/SGOT 22 U/L (<34); BILIRUBIN,TOTAL 0.3 MG/DL (0.3-1.2); BLOOD UREA NITROGEN 15 MG/DL (9-23); CALCIUM LEVEL 8.2 MG/DL (8.5-10.1); CARBON DIOXIDE LEVEL 28 MMOL/L (20-31); CHLORIDE LEVEL 108 MMOL/L (98-107); CREATININE FOR GFR 0.68 MG/DL (0.55-1.30); ERYTHROCYTE SEDIMENTATION RATE 60 mm/hr (0-30); GLOMERULAR FILTRATION RATE > 60.0 (>51); GLUCOSE, FASTING 98 MG/DL (60-100); POTASSIUM SERUM 4.5 MMOL/L (3.5-5.1); SODIUM LEVEL 140 MMOL/L (136-145); TOTAL PROTEIN 6.1 G/DL (5.7-8.2)
[2023-07-29 05:44] VITALS: BP 108/57; TEMP 97.7; O2SAT 98
[2023-07-29] MEDS: TORSEMIDE 20 MG TAB PO SCH (09:16)
[2023-07-29 14:00] VITALS: BP 119/61; TEMP 98.1; O2SAT 94
[2023-07-29 21:07] VITALS: BP 113/61; TEMP 97.3; O2SAT 97
[2023-07-30 05:57] VITALS: BP 112/60; TEMP 97.9; O2SAT 94
[2023-07-30 14:00] VITALS: BP 112/60; TEMP 98.1; O2SAT 95
[2023-07-30 21:00] VITALS: BP 101/58; TEMP 97.9; O2SAT 94
[2023-07-30] MEDS: PERCOCET 5MG/325MG TAB PO PRN (23:41)
[2023-07-31 06:00] VITALS: BP 106/56; TEMP 97.7; O2SAT 94
[2023-07-31 08:15] VITALS: BP 105/56
[2023-07-31 14:00] VITALS: BP 107/64; TEMP 97.9; O2SAT 98
[2023-07-31 22:00] VITALS: BP 106/65; TEMP 98.1; O2SAT 94
[2023-08-01 05:50] VITALS: BP 107/61; TEMP 97.7; O2SAT 95
[2023-08-01 08:10] VITALS: BP 107/59
[2023-08-01 14:00] VITALS: BP 107/58; TEMP 97.7; O2SAT 96
[2023-08-01 21:07] VITALS: BP 109/63; TEMP 98.2; O2SAT 94
[2023-08-02 05:57] VITALS: BP 96/51; TEMP 98.1; O2SAT 97
[2023-08-03 06:06] VITALS: BP 98/53; TEMP 97.6
[2023-08-03] MEDS ORDERED: PANT40TA29 PO (09:37)
[2023-08-03] MEDS ORDERED: CARI1TAB7 PO (09:37)
[2023-08-03] MEDS ORDERED: CETI10TA PO (09:37)
[2023-08-03] MEDS ORDERED: TORS20TA2 PO (09:37)
== END 2023-08-03 11:10 | DRG 871 ==
LOC: M ED 18:03 → EDBD 18:03 → M ED INP 07-19 00:32 → M MSPAV 07-19 01:04
PROVIDERS: ADMIT Internal Medicine; ATTEND Student in an Organized Health Care Education/Training Program
DX: A41.9 Sepsis, unspecified organism (principal); J18.9 Pneumonia, unspecified organism; M62.82 Rhabdomyolysis; N39.0 Urinary tract infection, site not specified; J98.11 Atelectasis; G35 Multiple sclerosis; R27.0 Ataxia, unspecified; E87.6 Hypokalemia; F32.A Depression, unspecified; B37.2 Candidiasis of skin and nail; F12.90 Cannabis use, unspecified, uncomplicated; J45.909 Unspecified asthma, uncomplicated; L89.152 Pressure ulcer of sacral region, stage 2; L08.9 Local infection of the skin and subcutaneous tissue, unspecified; Z99.3 Dependence on wheelchair; Z88.0 Allergy status to penicillin; Z88.8 Allergy status to other drugs, medicaments and biological substances; Z79.899 Other long term (current) drug therapy; Z87.891 Personal history of nicotine dependence; K21.9 Gastro-esophageal reflux disease without esophagitis; M62.838 Other muscle spasm

== ENCOUNTER 2023-08-27 20:24 | Emergency (ER) | payer MEDICARE, OTHER ==
[2023-08-27 20:24] VITALS: BP 113/53; TEMP 98.6; O2SAT 99
[~2023-08-27 20:24] MED LIST changes: +ALBU8.5H INH; +CARI1TAB7 PO; +CETI10TA PO; +LEVOTAB10 PO; +OMEP-173 PO; +PANT40TA29 PO; +PROBCAP14 PO; +TORS20TA2 PO
== END 2023-08-27 22:00 | disposition left against medical advice (07) ==
LOC: M ED 20:24
DX: Z53.21 Procedure and treatment not carried out due to patient leaving prior to being seen by health care provider (principal)

== ENCOUNTER → 2023-08-30 | Outpatient (CLI) | payer OTHER ==
[2023-08-30 16:12] LABS: BASO % 0.7 % (0.0-1.0); EOS # 0.2 10^3/uL (0.0-0.5); EOS % 3.2 % (0.0-3.0); HEMATOCRIT 36.3 % (36.0-47.0); HEMOGLOBIN 11.5 g/dl (12.0-15.5); LYMPH # 1.7 10^3/uL (1.5-5.0); LYMPH % 29.3 % (24.0-44.0); MEAN CORPUSCULAR HGB CONC 31.7 g/dl (32.0-36.5); MEAN CORPUSCULAR VOLUME 88.3 fl (80.0-96.0); MONO # 0.5 10^3/uL (0.0-0.8); MONO % 7.7 % (2.0-8.0); NEUTROPHILS # 3.5 10^3/uL (1.5-8.5); NEUTROPHILS % 58.9 % (36.0-66.0); PLATELET COUNT, AUTOMATED 284 10^3/uL (150-450); RED BLOOD COUNT 4.11 10^6/uL (4.00-5.40); WHITE BLOOD COUNT 5.9 10^3/uL (4.0-10.0)
[2023-08-30 16:25] LABS: ALBUMIN 2.7 G/DL (3.2-5.2); ALKALINE PHOSPHATASE 91 U/L (46-116); ALT/SGPT 18 U/L (7.0-40); AST/SGOT 20 U/L (<34); BILIRUBIN,TOTAL 0.3 MG/DL (0.3-1.2); BLOOD UREA NITROGEN 9 MG/DL (9-23); CALCIUM LEVEL 9.1 MG/DL (8.5-10.1); CARBON DIOXIDE LEVEL 33 MMOL/L (20-31); CHLORIDE LEVEL 107 MMOL/L (98-107); CREATININE FOR GFR 0.63 MG/DL (0.55-1.30); GLOMERULAR FILTRATION RATE > 60.0 (>51); GLUCOSE, FASTING 79 MG/DL (60-100); POTASSIUM SERUM 5.1 MMOL/L (3.5-5.1); SODIUM LEVEL 140 MMOL/L (136-145); TOTAL PROTEIN 6.4 G/DL (5.7-8.2)
== END ==
LOC: M RAD 15:18
PROVIDERS: ATTEND Physician Assistant
DX: R60.0 Localized edema (principal)

== ENCOUNTER → 2023-09-03 | Outpatient (REF) | payer OTHER ==
[2023-09-04 18:40] LABS: APPEARANCE, URINE CLOUDY (CLEAR); BACTERIA, URINE AUTO 3+ (NEGATIVE); BILIRUBIN, URINE AUTO NEGATIVE (NEGATIVE); BLOOD, URINE BLOOD NEGATIVE (NEGATIVE); COLOR, URINE AMBER (YELLOW); GLUCOSE, URINE (UA) AUTO NEGATIVE (NEGATIVE); KETONE, URINE AUTO NEGATIVE (NEGATIVE); LEUKOCYTE ESTERASE, URINE AUTO TRACE (NEGATIVE); MUCUS, URINE SMALL (NEGATIVE); NITRITE, URINE AUTO POSITIVE (NEGATIVE); PROTEIN, URINE AUTO NEGATIVE (NEGATIVE); RBC, URINE AUTO 0 /HPF (0-3); SPECIFIC GRAVITY URINE AUTO 1.017 (1.002-1.035); SQUAMOUS EPITHELIAL CELL UR AU 1 /HPF (0-6); UROBILINOGEN, URINE AUTO 0.2 mg/dL (0.0-2.0); WBC, URINE AUTO 4 /HPF (0-3)
== END ==
LOC: M SFHCLERA 17:51
PROVIDERS: ATTEND Physician Assistant
DX: R60.0 Localized edema (principal); Z79.899 Other long term (current) drug therapy

== ENCOUNTER → 2023-09-07 | Outpatient (CLI) | payer OTHER ==
[~2023-09-07] VITALS: Ht 167.6 cm; Wt 94.0 kg
[2023-09-07 11:50] VITALS: BP 103/51; O2SAT 96
[2023-09-07] MEDS: NATALIZUMAB OVER 1 HOUR IV ONE (12:24)
[2023-09-07 13:25] VITALS: BP 110/52; O2SAT 98
== END ==
LOC: M INFU 10:59
PROVIDERS: ATTEND Psychiatry & Neurology Neurology
DX: G35 Multiple sclerosis (principal); Z88.0 Allergy status to penicillin; Z88.6 Allergy status to analgesic agent; Z88.8 Allergy status to other drugs, medicaments and biological substances
CPT/HCPCS: 96365; J2323

== ENCOUNTER → 2023-09-11 | Outpatient (CLI) | payer OTHER | LOC: M RAD 12:17 | PROVIDERS: ATTEND Physician Assistant | DX: R60.0 Localized edema (principal) ==

== ENCOUNTER 2023-10-01 16:32 | Inpatient (IN) | payer OTHER ==
[~2023-10-01] VITALS: Ht 170.2 cm; Wt 91.8 kg
[2023-10-01] MEDS: LIDOCAINE 2% 5ML JELLY UROJET TOP ONE (17:00)
[2023-10-01 17:30] LABS: HEMATOCRIT 36.5 % (36.0-47.0); HEMOGLOBIN 11.6 g/dl (12.0-15.5); MEAN CORPUSCULAR HEMOGLOBIN 27.3 pg (27.0-33.0); MEAN CORPUSCULAR HGB CONC 31.8 g/dl (32.0-36.5); MEAN CORPUSCULAR VOLUME 85.9 fl (80.0-96.0); PLATELET COUNT, AUTOMATED 359 10^3/uL (150-450); RED BLOOD COUNT 4.25 10^6/uL (4.00-5.40); WHITE BLOOD COUNT 13.2 10^3/uL (4.0-10.0)
[2023-10-01] MEDS: ACETAMINOPHEN TAB 650MG DOSE (2X325MG) PO ONE (17:50)
[2023-10-01] MEDS: NS 1,000 ML IV ONE ×2 (17:50→18:30)
[2023-10-01 17:55] LABS: ALBUMIN 2.9 G/DL (3.2-5.2); ALKALINE PHOSPHATASE 82 U/L (46-116); ALT/SGPT 37 U/L (7.0-40); AST/SGOT 65 U/L (<34); BILIRUBIN,DIRECT 0.2 MG/DL (<0.4); BILIRUBIN,TOTAL 0.5 MG/DL (0.3-1.2); BLOOD UREA NITROGEN 11 MG/DL (9-23); CALCIUM LEVEL 8.7 MG/DL (8.5-10.1); CARBON DIOXIDE LEVEL 31 MMOL/L (20-31); CHLORIDE LEVEL 100 MMOL/L (98-107); CK-MB VALUE MASS 16.6 NG/ML (<3.6); CREATININE FOR GFR 0.62 MG/DL (0.55-1.30); GLOMERULAR FILTRATION RATE > 60.0 (>51); GLUCOSE, FASTING 122 MG/DL (60-100); POTASSIUM SERUM 4.1 MMOL/L (3.5-5.1); SODIUM LEVEL 135 MMOL/L (136-145); TOTAL PROTEIN 6.9 G/DL (5.7-8.2)
[2023-10-01 18:18] LABS: ERYTHROCYTE SEDIMENTATION RATE 58 mm/hr (0-30)
[2023-10-01 18:22] LABS: CPK CREATINE PHOSPHOKINASE 1886 U/L (34-145); MB/CK RELATIVE INDEX 0.88 (< OR =4)
[2023-10-01] MEDS: VANCOMYCIN HCL 1,000 MG, VIAL MATE ADAPTER 1 EACH in D5W 250 ML IV ONE ×2 (18:54→22:23)
[2023-10-01] MEDS: NS 500 ML IV ONE (18:55)
[2023-10-01] MEDS: CEFEPIME HCL 1 GM in D5W MINI-BAG PLUS 50 ML IV ONE (19:04)
[2023-10-01] MEDS ORDERED: VANCOMYCIN HCL 1,000 MG, VIAL MATE ADAPTER 1 EACH in D5W 250 ML IV SCH (19:40)
[2023-10-01] MEDS ORDERED: FURO40TA2 PO (20:37)
[2023-10-01] MEDS ORDERED: CARI1TAB7 PO (20:37)
[2023-10-01] MEDS ORDERED: BACL1TAB9 PO ×2 (20:37)
[2023-10-01] MEDS ORDERED: VITA100093 PO (20:37)
[2023-10-01] MEDS ORDERED: HOME MED LIST COMPLETE! XX SCH (20:40)
[2023-10-01] MEDS: NS 1,000 ML IV SCH (22:23)
[2023-10-01 23:15] VITALS: BP 120/56; TEMP 98.2; O2SAT 96
[2023-10-02] MEDS: CEFEPIME HCL 2 GM in D5W MINI-BAG PLUS 50 ML IV SCH (02:26)
[2023-10-02 04:00] VITALS: BP 110/53; TEMP 99; O2SAT 92
[2023-10-02] MEDS: VANCOMYCIN HCL 750 MG, VIAL MATE ADAPTER 1 EACH in D5W 250 ML IV SCH ×2 (04:19→14:21)
[2023-10-02] MEDS: VANCOMYCIN HCL 500 MG in D5W MINI-BAG PLUS 100 ML IV SCH ×2 (06:15→14:22)
[2023-10-02 07:10] LABS: HEMATOCRIT 30.1 % (36.0-47.0); HEMOGLOBIN 9.9 g/dl (12.0-15.5); MEAN CORPUSCULAR HGB CONC 32.9 g/dl (32.0-36.5); PLATELET COUNT, AUTOMATED 262 10^3/uL (150-450); RED BLOOD COUNT 3.54 10^6/uL (4.00-5.40); WHITE BLOOD COUNT 9.9 10^3/uL (4.0-10.0)
[2023-10-02 07:47] VITALS: BP 109/55; TEMP 98; O2SAT 92
[2023-10-02 07:47] LABS: ALBUMIN 1.8 G/DL (3.2-5.2); ALKALINE PHOSPHATASE 55 U/L (46-116); ALT/SGPT 30 U/L (7.0-40); AST/SGOT 49 U/L (<34); BILIRUBIN,TOTAL 0.4 MG/DL (0.3-1.2); BLOOD UREA NITROGEN 8 MG/DL (9-23); CALCIUM LEVEL 7.2 MG/DL (8.5-10.1); CARBON DIOXIDE LEVEL 28 MMOL/L (20-31); CHLORIDE LEVEL 105 MMOL/L (98-107); GLOMERULAR FILTRATION RATE > 60.0 (>51); GLUCOSE, FASTING 117 MG/DL (60-100); MAGNESIUM LEVEL 1.8 MG/DL (1.8-2.4); POTASSIUM SERUM 3.5 MMOL/L (3.5-5.1); SODIUM LEVEL 138 MMOL/L (136-145)
[2023-10-02] MEDS: ENOXAPARIN 40MG/0.4ML SYRINGE (J1650 PER 10MG) SC SCH (09:08)
[2023-10-02] MEDS: ADVAIR HFA 115/21MCG INHALER INH SCH (10:22)
[2023-10-02] MEDS: OMEPRAZOLE 20MG CAP PO SCH (10:53)
[2023-10-02] MEDS: FLUoxetine 20MG CAP PO SCH (10:53)
[2023-10-02] MEDS: BACLOFEN 10 MG TAB PO SCH ×2 (10:53→14:22)
[2023-10-02] MEDS ORDERED: ALBUTEROL 90 MCG/ACT 8GM HFA INHALER INH PRN (11:00)
[2023-10-02 12:00] VITALS: BP 126/60; TEMP 98; O2SAT 92
[2023-10-02] MEDS: carisoprodoL 350 MG TAB PO PRN (14:22)
[2023-10-02 16:00] VITALS: BP 116/74; TEMP 98.4; O2SAT 94
[2023-10-02] MEDS: MONTELUKAST 10 MG TAB PO SCH (20:42)
[2023-10-02 20:45] VITALS: BP 112/54; TEMP 97.7; O2SAT 93
[2023-10-02 21:57] VITALS: BP 104/52; TEMP 98.4; O2SAT 95
[2023-10-02] MEDS: ACETAMINOPHEN TAB 650MG DOSE (2X325MG) PO PRN (23:30)
[2023-10-03 04:41] VITALS: BP 109/61; TEMP 97.7; O2SAT 93
[2023-10-03 07:38] LABS: HEMATOCRIT 30.1 % (36.0-47.0); HEMOGLOBIN 9.7 g/dl (12.0-15.5); MEAN CORPUSCULAR HEMOGLOBIN 26.9 pg (27.0-33.0); MEAN CORPUSCULAR HGB CONC 32.2 g/dl (32.0-36.5); MEAN CORPUSCULAR VOLUME 83.6 fl (80.0-96.0); PLATELET COUNT, AUTOMATED 269 10^3/uL (150-450); WHITE BLOOD COUNT 8.3 10^3/uL (4.0-10.0)
[2023-10-03 08:05] LABS: BLOOD UREA NITROGEN 5 MG/DL (9-23); CALCIUM LEVEL 7.1 MG/DL (8.5-10.1); CARBON DIOXIDE LEVEL 28 MMOL/L (20-31); CHLORIDE LEVEL 105 MMOL/L (98-107); CREATININE FOR GFR 0.48 MG/DL (0.55-1.30); GLOMERULAR FILTRATION RATE > 60.0 (>51); GLUCOSE, FASTING 101 MG/DL (60-100); MAGNESIUM LEVEL 1.8 MG/DL (1.8-2.4); POTASSIUM SERUM 3.3 MMOL/L (3.5-5.1); SODIUM LEVEL 139 MMOL/L (136-145)
[2023-10-03] MEDS: LACTIC ACID 12% LOTION 225 GM BTL EXT SCH (08:35)
[2023-10-03] MEDS: SENOKOT S TAB PO SCH (09:42)
[2023-10-03] MEDS: MOM 30ML SUSPENSION UDC PO ONE (09:42)
[2023-10-03] MEDS: MIRALAX *UNIT DOSE* 17GM PACKET PO SCH (09:42)
[2023-10-03] MEDS: POTASSIUM CHLORIDE 10MEQ SR TABLET PO ONE (09:42)
[2023-10-03] MEDS: KCL 10MEQ/100ML SWI (KRUN) 10 MEQ in IV 1 EA IV SCH (09:43)
[2023-10-03 10:00] VITALS: BP 121/72; TEMP 98.1; O2SAT 96
[2023-10-03] MEDS: PERCOCET 5MG/325MG TAB PO PRN (11:15)
[2023-10-03 14:00] VITALS: BP 110/61; TEMP 98.1; O2SAT 97
[2023-10-03] MEDS ORDERED: PROHANCE 279.3MG/ML 5ML VIAL As Ordered ONE (18:00)
[2023-10-03] MEDS ORDERED: PROHANCE 279.3MG/ML 15ML VIAL As Ordered ONE (18:01)
[2023-10-03 21:19] VITALS: BP 112/61; TEMP 98.2; O2SAT 93
[2023-10-03] MEDS: CEFEPIME HCL 2 GM in D5W MINI-BAG PLUS 50 ML IV SCH (22:50)
[2023-10-04 05:50] VITALS: BP 107/64; TEMP 97.7; O2SAT 96
[2023-10-04 06:55] LABS: HEMATOCRIT 28.3 % (36.0-47.0); HEMOGLOBIN 9.2 g/dl (12.0-15.5); MEAN CORPUSCULAR HEMOGLOBIN 27.5 pg (27.0-33.0); MEAN CORPUSCULAR HGB CONC 32.5 g/dl (32.0-36.5); MEAN CORPUSCULAR VOLUME 84.5 fl (80.0-96.0); PLATELET COUNT, AUTOMATED 288 10^3/uL (150-450); RED BLOOD COUNT 3.35 10^6/uL (4.00-5.40); WHITE BLOOD COUNT 6.8 10^3/uL (4.0-10.0)
[2023-10-04 07:38] LABS: PROCALCITONIN 0.06 ng/ml
[2023-10-04 10:16] LABS: BLOOD UREA NITROGEN 6 MG/DL (9-23); CALCIUM LEVEL 7.4 MG/DL (8.5-10.1); CARBON DIOXIDE LEVEL 28 MMOL/L (20-31); CHLORIDE LEVEL 109 MMOL/L (98-107); CREATININE FOR GFR 0.42 MG/DL (0.55-1.30); GLOMERULAR FILTRATION RATE > 60.0 (>51); GLUCOSE, FASTING 93 MG/DL (60-100); IRON (FE) 12 UG/DL (50-170); PERCENT SATURATION 6.5 % (13.2-45.0); POTASSIUM SERUM 3.9 MMOL/L (3.5-5.1); SODIUM LEVEL 141 MMOL/L (136-145); TOTAL IRON BINDING CAPACITY 184 UG/DL (250-425)
[2023-10-04 10:18] LABS: FERRITIN 92.7 NG/ML (7.3-270.7); FOLATE 20.44 NG/ML (>5.4)
[2023-10-04 10:19] LABS: VITAMIN B12 LEVEL 455 PG/ML (211-911)
[2023-10-04 14:13] VITALS: BP 105/60; TEMP 98.2; O2SAT 96
[2023-10-04 20:20] VITALS: BP 109/61; TEMP 98.2; O2SAT 95
[2023-10-04] MEDS: BACTRIM 160MG/800MG DS TAB PO SCH (21:41)
[2023-10-05 06:00] VITALS: BP 108/64; TEMP 98.1; O2SAT 93
[2023-10-05 06:41] LABS: BLOOD UREA NITROGEN 6 MG/DL (9-23); CALCIUM LEVEL 7.6 MG/DL (8.5-10.1); CARBON DIOXIDE LEVEL 28 MMOL/L (20-31); CHLORIDE LEVEL 107 MMOL/L (98-107); CREATININE FOR GFR 0.48 MG/DL (0.55-1.30); GLOMERULAR FILTRATION RATE > 60.0 (>51); GLUCOSE, FASTING 86 MG/DL (60-100); SODIUM LEVEL 139 MMOL/L (136-145)
[2023-10-05 07:44] LABS: HEMATOCRIT 29.4 % (36.0-47.0); HEMOGLOBIN 9.4 g/dl (12.0-15.5); MEAN CORPUSCULAR HEMOGLOBIN 26.9 pg (27.0-33.0); PLATELET COUNT, AUTOMATED 311 10^3/uL (150-450); WHITE BLOOD COUNT 6.1 10^3/uL (4.0-10.0)
[2023-10-05 08:21] LABS: BLOOD UREA NITROGEN < 5 MG/DL (9-23); CALCIUM LEVEL 7.7 MG/DL (8.5-10.1); CARBON DIOXIDE LEVEL 28 MMOL/L (20-31); CHLORIDE LEVEL 107 MMOL/L (98-107); CREATININE FOR GFR 0.48 MG/DL (0.55-1.30); GLOMERULAR FILTRATION RATE > 60.0 (>51); GLUCOSE, FASTING 92 MG/DL (60-100); MAGNESIUM LEVEL 2.1 MG/DL (1.8-2.4); POTASSIUM SERUM 4.3 MMOL/L (3.5-5.1); SODIUM LEVEL 139 MMOL/L (136-145)
[2023-10-05] MEDS: FERRIC CARBOXYMALTOSE INJ 750 MG, VIAL MATE ADAPTER 1 EACH in NS 250 ML IV ONE (12:26)
[2023-10-05] MEDS: CEFDINIR 300 MG CAP (OMNICEF) PO SCH (12:31)
[2023-10-05 14:00] VITALS: BP 113/53; TEMP 98.1; O2SAT 94
[2023-10-05] MEDS: BACLOFEN 10 MG TAB PO ONE (16:01)
[2023-10-05] MEDS: carisoprodoL 350 MG TAB PO PRN (16:01)
[2023-10-05 21:38] VITALS: BP 108/63; TEMP 98.1; O2SAT 94
[2023-10-06 05:48] VITALS: BP 122/59; TEMP 97.9; O2SAT 93
[2023-10-06 07:16] LABS: BASO # 0.1 10^3/uL (0.0-0.2); BASO % 1.2 % (0.0-1.0); EOS # 0.5 10^3/uL (0.0-0.5); EOS % 8.2 % (0.0-3.0); HEMATOCRIT 31.2 % (36.0-47.0); HEMOGLOBIN 9.8 g/dl (12.0-15.5); LYMPH # 1.8 10^3/uL (1.5-5.0); LYMPH % 30.3 % (24.0-44.0); MEAN CORPUSCULAR HEMOGLOBIN 26.4 pg (27.0-33.0); MEAN CORPUSCULAR HGB CONC 31.4 g/dl (32.0-36.5); MEAN CORPUSCULAR VOLUME 84.1 fl (80.0-96.0); MONO # 0.6 10^3/uL (0.0-0.8); MONO % 9.9 % (2.0-8.0); NEUTROPHILS # 2.9 10^3/uL (1.5-8.5); NEUTROPHILS % 49.2 % (36.0-66.0); PLATELET COUNT, AUTOMATED 347 10^3/uL (150-450); RED BLOOD COUNT 3.71 10^6/uL (4.00-5.40)
[2023-10-06 07:37] LABS: BLOOD UREA NITROGEN 8 MG/DL (9-23); CARBON DIOXIDE LEVEL 28 MMOL/L (20-31); CHLORIDE LEVEL 109 MMOL/L (98-107); CREATININE FOR GFR 0.49 MG/DL (0.55-1.30); GLOMERULAR FILTRATION RATE > 60.0 (>51); GLUCOSE, FASTING 95 MG/DL (60-100); POTASSIUM SERUM 4.4 MMOL/L (3.5-5.1); SODIUM LEVEL 141 MMOL/L (136-145)
[2023-10-06 14:00] VITALS: BP 120/68; TEMP 98.2; O2SAT 98
[2023-10-06 20:41] VITALS: BP 114/62; TEMP 97.7; O2SAT 93
[2023-10-07 06:00] VITALS: BP 115/61; TEMP 97.9; O2SAT 93
[2023-10-07 06:14] LABS: HEMATOCRIT 33.1 % (36.0-47.0); HEMOGLOBIN 10.4 g/dl (12.0-15.5); MEAN CORPUSCULAR HEMOGLOBIN 26.8 pg (27.0-33.0); MEAN CORPUSCULAR HGB CONC 31.4 g/dl (32.0-36.5); MEAN CORPUSCULAR VOLUME 85.3 fl (80.0-96.0); PLATELET COUNT, AUTOMATED 397 10^3/uL (150-450); RED BLOOD COUNT 3.88 10^6/uL (4.00-5.40); WHITE BLOOD COUNT 6.4 10^3/uL (4.0-10.0)
[2023-10-07 14:00] VITALS: BP 115/58; TEMP 97.9; O2SAT 92
[2023-10-07 21:54] VITALS: BP 108/54; TEMP 98.1; O2SAT 95
[2023-10-08 06:31] VITALS: BP 113/52; TEMP 97.9; O2SAT 95
[2023-10-08 14:00] VITALS: BP 111/54; TEMP 98.1; O2SAT 96
[2023-10-08 21:00] VITALS: BP 109/52; TEMP 97.9; O2SAT 96
[2023-10-09 05:39] VITALS: BP 106/59; TEMP 97.9; O2SAT 96
[2023-10-09 13:45] VITALS: BP 108/57; TEMP 97.9; O2SAT 96
[2023-10-09 20:31] VITALS: BP 108/55; TEMP 98.2; O2SAT 94
[2023-10-09 22:02] VITALS: BP 104/53
[2023-10-10 05:23] VITALS: BP 106/54; TEMP 97.9; O2SAT 96
[2023-10-10 06:16] LABS: HEMOGLOBIN 11.2 g/dl (12.0-15.5); MEAN CORPUSCULAR HEMOGLOBIN 27.4 pg (27.0-33.0); MEAN CORPUSCULAR VOLUME 85.6 fl (80.0-96.0); PLATELET COUNT, AUTOMATED 429 10^3/uL (150-450); RED BLOOD COUNT 4.09 10^6/uL (4.00-5.40)
[2023-10-10] MEDS ORDERED: SENN-52 PO (09:24)
[2023-10-10] MEDS ORDERED: AMMO12LO EXT (09:24)
[2023-10-10] MEDS ORDERED: FURO20TA2 PO (09:24)
== END 2023-10-10 13:12 | DRG 872 ==
LOC: M ED 16:32 → M ED INP 19:31 → M PCU 23:02 → M MSPAV 10-02 21:47
PROVIDERS: ADMIT Preventive Medicine Undersea and Hyperbaric Medicine; ATTEND Internal Medicine
DX: A41.9 Sepsis, unspecified organism (principal); N39.0 Urinary tract infection, site not specified; E46 Unspecified protein-calorie malnutrition; M48.56XA Collapsed vertebra, not elsewhere classified, lumbar region, initial encounter for fracture; L03.115 Cellulitis of right lower limb; N31.9 Neuromuscular dysfunction of bladder, unspecified; G35 Multiple sclerosis; L30.8 Other specified dermatitis; I89.0 Lymphedema, not elsewhere classified; K21.9 Gastro-esophageal reflux disease without esophagitis; K59.00 Constipation, unspecified; J45.909 Unspecified asthma, uncomplicated; F32.A Depression, unspecified; Z88.0 Allergy status to penicillin; Z88.8 Allergy status to other drugs, medicaments and biological substances; Z79.899 Other long term (current) drug therapy; D64.9 Anemia, unspecified; L89.892 Pressure ulcer of other site, stage 2

== ENCOUNTER → 2023-11-06 | Outpatient (CLI) | payer OTHER ==
[~2023-11-06] MED LIST changes: +AMMO12LO EXT; +FURO20TA2 PO; +FURO40TA2 PO; +SENN-52 PO; +VITA100093 PO
== END ==
LOC: M SOG 07:53
PROVIDERS: ATTEND Orthopaedic Surgery
DX: M54.50 Low back pain, unspecified (principal); Z53.9 Procedure and treatment not carried out, unspecified reason

== ENCOUNTER → 2023-11-08 | Outpatient (CLI) | payer OTHER | LOC: M SOG 09:25 | PROVIDERS: ATTEND Orthopaedic Surgery | DX: M54.50 Low back pain, unspecified (principal); Z53.9 Procedure and treatment not carried out, unspecified reason ==

== ENCOUNTER 2023-11-26 11:30 | Outpatient (CLI) | payer OTHER ==
[~2023-11-26] VITALS: Ht 170.2 cm; Wt 82.3 kg
[2023-11-26 11:35] VITALS: BP 104/57; O2SAT 98
[2023-11-26] MEDS: NATALIZUMAB OVER 1 HOUR IV ONE (12:31)
[2023-11-26 13:40] VITALS: BP 104/56; O2SAT 98
== END 2023-11-26 13:40 | disposition home or self-care (01) ==
LOC: M INFU 11:30
PROVIDERS: ATTEND Psychiatry & Neurology Neurology
DX: G35 Multiple sclerosis (principal); Z88.0 Allergy status to penicillin; Z88.6 Allergy status to analgesic agent; Z88.8 Allergy status to other drugs, medicaments and biological substances
CPT/HCPCS: 96365; J2323

== ENCOUNTER 2023-12-31 10:50 | Outpatient (CLI) | payer OTHER ==
[~2023-12-31] VITALS: Ht 170.2 cm; Wt 90.5 kg
[2023-12-31 10:50] VITALS: BP 140/77; O2SAT 97
[~2023-12-31 10:50] MED LIST changes: -ACIP1TAB PO; +NATALIZUMAB OVER 1 HOUR IV ONE; +RABE20TA88 PO
[2023-12-31] MEDS: NATALIZUMAB OVER 1 HOUR IV ONE (11:39)
[2023-12-31 12:50] VITALS: BP 121/57; O2SAT 97
== END 2023-12-31 12:50 | disposition home or self-care (01) ==
LOC: M INFU 10:50
PROVIDERS: ATTEND Psychiatry & Neurology Neurology
DX: G35 Multiple sclerosis (principal); Z88.0 Allergy status to penicillin; Z88.6 Allergy status to analgesic agent; Z88.8 Allergy status to other drugs, medicaments and biological substances
CPT/HCPCS: 96365; J2323

== ENCOUNTER → 2024-04-23 | Outpatient (CLI) | payer OTHER ==
[~2024-04-23] VITALS: Ht 170.2 cm; Wt 84.0 kg
[~2024-04-23] MED LIST changes: +GABA-1635 PO; -GABA800T4 PO; -NATALIZUMAB OVER 1 HOUR IV ONE
[2024-04-23 12:45] VITALS: BP 98/58; O2SAT 95
[2024-04-23] MEDS: NATALIZUMAB OVER 1 HOUR IV ONE (13:32)
[2024-04-23 14:35] VITALS: BP 94/56; O2SAT 95
== END ==
LOC: M INFU 12:51
PROVIDERS: ATTEND Psychiatry & Neurology Neurology
DX: G35 Multiple sclerosis (principal); Z88.0 Allergy status to penicillin; Z88.6 Allergy status to analgesic agent; Z88.8 Allergy status to other drugs, medicaments and biological substances
CPT/HCPCS: 96365; J2323